=== PATIENT | male | born 1955 | race Caucasian/White ===

== ENCOUNTER → 2020-08-04 09:21 | Outpatient (BNVA) | payer MEDICARE, OTHER, SELFPAY | PROVIDERS: Family Provider Family Medicine; Visit Provider Registered Nurse | DX: I10 Essential (primary) hypertension (principal) | CPT/HCPCS: 80053; 80061; 85025 ==

== ENCOUNTER 2021-05-16 03:57 | Inpatient (IN) | payer MEDICARE, OTHER, SELFPAY ==
[2021-05-16] VITALS (11 sets, daily range): BP systolic 116–170; BP diastolic 70–92; PULSE 47–62; RESP 13–22; TEMP 36.4–36.9; O2SAT 95–98; BMI 29.5
--- NOTE | 2021-05-16 04:38 | ECG_ITS ---
[facility] Test Date: 2021-05-16 Pat Name: Saurabh Naylor Department: Room: 111 Gender: Male Mill[place] Helper: Ann Coral : 1955 Requested By: Raquel Lee Order Number: [id number] Romana MD: SHANNAN TAYLOR Interpretive Statements NAME OF STUDY: LEXISCAN SESTAMIBI STRESS TEST INDICATION: Chest Pain, NOTE: Please note that this is the electrocardiogram portion of the Lexiscan/Sestamibi stress test. The perfusion scan will be documented separately. DATA: Baseline heart rate was 48 beats per minute. Baseline blood pressure was 133/77 millimeters of mercury. Target heart rate was 154. Maximum heart rate achieved was 81. which was 52% of the predicted target heart rate. Maximum blood pressure was 156/92 millimeters of mercury. The reason for ending the test was completion of the protocol. The patient did not experience any symptoms. ELECTROCARDIOGRAM: BASELINE: Sinus bradycardia. Normal axis. Old anterior wall myocardial infarction inferolateral T wave abnormality could be nonspecific cannot rule out ischemia EXERCISE: After Lexiscan injection, no ST-T changes suggestive of ischemic noted. No arrhythmia noted. CONCLUSION: Please note due to baseline abnormality of the EKG specificity and sensitivity of the EKG portion of LexiScan MIBI stress test will be low 1. EKG not suggestive of ischemia 2. Lexiscan injection unremarkable. 3. Perfusion scan will be documented separately. Electronically Signed On 05-19-2021 14:35:18 CDT by SHANNAN TAYLOR [id number]
--- NOTE | 2021-05-16 04:38 | USCV_ITS ---
Saurabh Naylor Age: 65 Gender: M : 1955 Exam Date: 05/16/2021 06:15 Ordering Phys: Raquel Lee MD Technologist: Exam Location: [facility] [place] Indication: CP SOB BP: 170 / 89 HR: 46 Rhythm: Sinus Technical Quality: Adequate MEASUREMENTS (Male / Female) Normal Values 2D ECHO LV Diastolic Diameter PLAX 4.8 cm 4.2 - 5.9 / 3.9 - 5.3 cm LV Systolic Diameter PLAX 2.9 cm IVS Diastolic Thickness 1.1 cm 0.6 - 1.0 / 0.6 - 0.9 cm IVS Systolic Thickness 1.8 cm LVPW Diastolic Thickness 1.1 cm 0.6 - 1.0 / 0.6 - 0.9 cm LVPW Systolic Thickness 1.8 cm LVOT Diameter 2.1 cm LV Ejection Fraction 2D Teich 69.2 % LV Ejection Fraction MOD 2C 59.7 % LV Ejection Fraction 2C AL 58.0 % LA Diameter 4.0 cm LA Width 4.4 cm LA Height 5.0 cm RA Width 3.9 cm RA Height 4.8 cm M-MODE Aortic Annulus Diameter 2.8 cm LA Ao Ratio MM 1.6 DOPPLER AV Peak Velocity 215.3 cm/s LVOT Peak Velocity 94.0 cm/s AV Area Cont Eq vti 1.4 cm squared AV Area Cont Eq pk 1.5 cm squared MV Area PHT 2.4 cm squared Mitral E to A Ratio 0.9 MV E' Velocity 54.5 cm/s Mitral E to MV E' Ratio 18.4 Mitral E to LV E' Lateral Ratio 16.6 Mitral E to LV E' Septal Ratio 20.6 TR Peak Velocity 250.3 cm/s TR Peak Gradient 25.1 mmHg TV Peak E Velocity 109.0 cm/s Right Atrial Pressure 3.0 mmHg Pulmonary Artery Systolic Pressu 28.1 mmHg FINDINGS Left Ventricle Normal left ventricular size and systolic function, EF 62 %. Mild left ventricular hypertrophy. No regional wall motion abnormalities. Grade I/IV diastolic dysfunction (abnormal relaxation filling pattern), normal to mildly elevated filling pressures. Right Ventricle The right ventricle is normal in size and function. Right Atrium The right atrium is normal in size. Left Atrium Mildly increased left atrial size. Mitral Valve Thickened mitral valve. Moderate mitral annular calcification. Aortic Valve Thickened aortic valve. Trace yo mild aortic valve regurgitation. Tricuspid Valve No gross abnormalities noted Pulmonic Valve Pulmonic valve not well visualized. Pericardium Normal pericardium without effusion. Aorta Normal aortic annulus size. CONCLUSIONS Normal left ventricular size and systolic function, EF 62 %. Mild left ventricular hypertrophy. No regional wall motion abnormalities. Grade I/IV diastolic dysfunction (abnormal relaxation filling pattern), normal to mildly elevated filling pressures. Thickened mitral valve. Moderate mitral annular calcification. Thickened aortic valve. Trace yo mild aortic valve regurgitation. Mildly increased left atrial size. There is no pericardial effusion. There are no intracardiac masses. No previous study is available for comparison. Dr Wallace Drew MD FAC (Electronically Signed) Final Date: 16 May 2021 16:42 S
--- NOTE | 2021-05-16 04:39 | NMCV_ITS ---
NM yamilet perf SPECT r/s* [id number] Saurabh Naylor Age: 65 Gender: M : 1955 Exam Date: 05/16/2021 06:57 Ordering Phys: Raquel Lee MD Technologist: DAVID Ortiz Exam Location: [facility] Indications: CHEST PAIN STRESS TEST Please see separate stress test report in [facility] for full findings IMAGE PROTOCOL Rest/Stress 1 Lexiscan Day Radiopharmaceutical Dose (mCi) Administration Site Administered by Rest: Tc-99m 10.8 IV DAVID Dill Sestamibi Stress:Tc-99m 32.6 IV DAVID Dill Sestamibi Rest: 16-May-2021 60 Discovery 630 Stress: 16-May-2021 30 Discovery 630 0.4mg Lexiscan. Images obtained in supine and prone position. SPECT RESULTS Technical Quality: Excellent Raw Data Analysis: Normal Image Corrections: Patient motion artifact - motion correction applied to rest and stress images. Summed Stress Score: 14 Summed Rest Score: 2 Summed Difference Score: 12 PERFUSION FINDINGS Medium-sized area of decreased tracer uptake noted in basal inferior, inferoseptal and mid to distal inferior wall on the rest images which showed large area of severe reversibility in the mid to distal inferior inferoseptal and medium-sized area of reversibility suggestive of ischemia in the mid to distal anteroseptal wall suggestive of possible lesion in dominant RCA and LAD . FUNCTIONAL RESULTS (calculated via Gated SPECT) Stress Image LV EF (%): 47 Stress EDV (mL):159 TID: 1.08 Stress ESV (mL):84 Rest Image LV EF (%): 47 FUNCTIONAL FINDINGS: Inferior wall severe hypokinesis IMPRESSIONS Medium-sized area of decreased tracer uptake noted in basal inferior, inferoseptal and mid to distal inferior wall on the rest images which showed large area of severe reversibility in the mid to distal inferior inferoseptal wall and medium-sized area of reversibility suggestive of ischemia in the mid to distal anteroseptal wall suggestive of possible lesion in dominant RCA and LAD. EKG segment will be documented separately. Zackery Davidson MD (Electronically Signed) Final Date: 16 May 2021 16:16 S
[2021-05-16] MEDS: dextrose 5%-sod chloride 0.45% 1,000 ML 75 ML IV (04:59)
--- NOTE | 2021-05-16 05:19 | PM.HP ---
Providers/Chief Complaint Admitting Physician: Raquel Lee MD Primary Care Provider: Ronni Burk Chief Complaint: chest pain History of Present Illness Saurabh Naylor is a 65 year old male who presented to [facility] with complaint of chest pain. He has had intermittent episodes over the last 3 to 4 weeks. He walks daily and has had onset of the discomfort during his walks. Has not really noted that he gets better with rest. Its been escalating in severity over the last few weeks. On the day he presented to [facility], he had 3 or 4 episodes of discomfort across his entire chest that he described as a pressure sensation. No particular increase in shortness of breath, nausea, vomiting, diaphoresis or dizziness. With the recurrent episodes he presented to the ER there. By the time he came to the emergency room pain had resolved. He received aspirin. Initial troponin was 47 with a 2-hour delta of 14 and request was made for transfer here. Twelve-lead EKG showed sinus rhythm with some anterior lateral T wave changes. BNP was elevated. Patient himself and has no prior history of heart problems beyond high blood pressure. Sounds like he has not tolerated many medications and does not take anything for blood pressure regularly. At the current time patient is chest pain-free. He has not had any cardiac evaluation. His father did have heart problems necessitating cardiac intervention of some kind in his 50s. Review of Systems Const: Denies: fever(s), chills or change in weight Eyes: Denies: change in vision ENMT: Denies: throat pain or nasal congestion Card: Reports: chest pain; Denies: palpitations, edema or orthopnea Resp: Denies: dyspnea, productive cough or non-productive cough GI: Denies: abdominal pain, nausea, vomiting, diarrhea, constipation, hematochezia or melena : Denies: hematuria Musc: Denies: extremity pain Skin/Breast: Denies: rash or sores Neuro: Denies: headache(s), numbness in extremities, weakness in extremities or difficulty walking Psych: Denies: anxiety or depression Richard/Lymph: Denies: easy bruising or easy bleeding Medications/Allergies Home Medications Medication Instructions Recorded Confirmed Last Taken Type allopurinol 300 mg tablet 150 mg PO DAILY #90 tab 07/19/20 05/16/21 05/15/21 Rx celecoxib 100 mg capsule 100 mg PO BID #180 cap 07/19/20 05/16/21 05/15/21 Rx fluticasone propionate 50 See Rx Instructions .ROUTE 01/30/21 05/16/21 05/15/21 Rx mcg/actuation nasal .COMPLEX #16 g spray,suspension cyclosporine [Restasis] 1 drp OPHTHALMIC (EYE) BID 05/16/21 05/16/21 05/15/21 History ketoconazole 1 applic TOPICAL BID PRN 05/16/21 05/16/21 Unknown History omega 3-vitamin E-fish oil 1 cap PO BID 05/16/21 05/16/21 05/15/21 History triamcinolone acetonide 1 applic TOPICAL BID PRN 05/16/21 05/16/21 Unknown History Allergies Allergy/AdvReac Type Severity Reaction Status Date / Time No Known Allergies Allergy Verified 08/04/20 08:58 PFSH Acute PFSH: Medical History (Updated 05/16/21 @ 05:29 by Raquel Lee MD) Chronic sinus bradycardia Essential hypertension Gout Osteoarthritis Surgical History (Updated 05/16/21 @ 05:29 by Raquel Lee MD) History of colonoscopy (~2016) History of esophagogastroduodenoscopy (EGD) (~2012) History of surgery Varicocelectomy Family History (Updated 05/16/21 @ 06:22 by Raquel Lee MD) Father CAD (coronary artery disease) Onset in his 50s, had some type of cardiac intervention Social History (Updated 05/16/21 @ 06:23 by Raquel Lee MD) Smoking and tobacco status: never smoked Alcohol intake: never Substance/Drug Use: never Household members: spouse Vitals/I&O/Wt Last Vital Signs Pulse 47 L 05/16/21 05:07 Resp 22 H 05/16/21 04:34 BP 170/89 05/16/21 04:34 Pulse Ox 95 05/16/21 04:34 vital signs at outside facility showed heart rate in the 40s and blood pressure generally 150s to 160s over 80s Weight last 48 hrs Weight 80.649 kg Physical Exam Narrative: EXAM NARRATIVE: Constitutional: Awake and alert, able to provide history HEENT: Normocephalic, atraumatic, pupils reactive, extraocular movements intact, nasopharynx is clear, oropharynx is clear Neck: Supple without JVD noted Respiratory: Clear to auscultation bilaterally had any rales or wheezes Cardiovascular: Bradycardic but regular rhythm Abdomen: Soft, nontender, nondistended, positive bowel sounds : Deferred Extremities: No pitting edema or acute synovitis Skin: No rashes or large bruises Neuro: Face symmetric, speech clear, moves all extremities, handgrip equal Psych: Normal affect Data Other data: EKG: From [facility] per my interpretation with sinus rhythm 60 bpm with anterior lateral T wave inversion, no ST segment elevation Prior or outside records reviewed: Records from [facility] reviewed as were [facility] records here. Laboratory studies there showed the following: White count 6, H&H 14/44, platelets 186, 54% neutrophils, 32% lymphocytes, INR 0.9, PTT 29.1, D-dimer slightly elevated at 0.69 with upper limits of normal at 0.050 Sodium 144, potassium 3.6, chloride 109, CO2 27, calcium 9.0, BUN/creatinine 24/1.1, glucose 117, total protein 6.4, albumin 3.9, total bilirubin 0.3, alkaline phosphatase 83, AST 23, ALT 16, lipase 30, proBNP 1076 which is elevated with normal range 0-1 25, TSH 1.20, magnesium 2.2 Fifth generation troponin at baseline 43, at 2 hours 57 with 2-hour delta of 14, at 6 hours 54 with a 6-hour delta of 11 Urine drug screen was negative, urinalysis unremarkable Covid rapid antigen was negative, benzo screen negative for AMB Chest x-ray revealed cardiomegaly without any other acute abnormality identified. Description showed mild left basilar atelectasis. 2.2 cm left lower lobe nodule that had also been seen on prior CT in 2016. Remainder of the lungs are clear. Pleural spaces are unremarkable with no pleural effusion or pneumothorax. Bones were unremarkable and heart/mediastinum showed the moderate cardiomegaly. A&P Assessment and plan (1) Chest pain: Status: Acute (2) Elevated brain natriuretic peptide (BNP) level: Status: Acute (3) Essential hypertension: Status: Chronic Additional A&P Information Observation admission Repeat troponin Echocardiogram Nuclear stress testing Consider cardiology consultation pending results of above Continue Nitropaste currently for blood pressure control, consider alternative agents for blood pressure control after stress testing Check lipid panel Check hemoglobin A1c PPI Hold home Celebrex as GI source of chest discomfort is also within the differential Continue home allopurinol Supportive care otherwise Plans were discussed with patient and he was given an opportunity to ask questions Anticipate discharge home when medically stable Lovenox for DVT prophylaxis Full code Attestations Medical Necessity Statement*: Currently anticipate a stay less than two midnights in a gentleman presenting with chest pain that has resolved, abnormal troponin and EKG necessitating further cardiac evaluation as described. Coding Level of Care Code Acute Boom Supervisor for Isidro Saucedo Diagnoses Chest pain R07.9 Elevated brain natriuretic peptide (BNP) level R79.89 Essential hypertension I10
--- NOTE | 2021-05-16 06:36 | ECG_ITS ---
[facility] Test Date: 2021-05-16 Pat Name: Saurabh Naylor Department: Room: 111 Gender: Male Guest Room Attendant: : 1955 Requested By: Raquel Lee Order Number: [id number] Romana MD: SHANNAN TAYLOR Measurements Intervals [place] Rate: 46 P: 69 ID: [id number] QRS: -10 QRSD: 104 T: -70 QT: 535 QTc: 472 Interpretive Statements SINUS BRADYCARDIA MODERATE T-WAVE ABNORMALITY, CONSIDER ANTEROLATERAL ISCHEMIA [-0.1+ mV T WAVE IN V3-V6] MODERATE T-WAVE ABNORMALITY, CONSIDER INFERIOR ISCHEMIA [-0.1+ mV T WAVE IN II/aVF] No previous ECG available for comparison Electronically Signed On 05-16-2021 20:13:52 CDT by SHANNAN TAYLOR [id number]
[2021-05-16] MEDS: regadenoson 0.4 Mg/5 ml Syringe IVP (07:43)
--- NOTE | 2021-05-16 08:40 | PC.NURSE ---
spoke with Dr tovar upon patient return to unit in regards to medications not given on time due to pharmacy delay in verification and patient off unit for testing instructions received to re-time lovenox stop nitro paste
--- NOTE | 2021-05-16 09:12 | PC.NURSE ---
On unit Pt returned to unit after stress test at 0835
--- NOTE | 2021-05-16 09:36 | PC.CHAP ---
Pastoral Care Encounter/Spiritual Assessment Type of Contact [] Declined subsorter visit [] Patient/Family/Request visit [] Outpatient visit [] Follow-up visit [] Physician referral [] Code/Alert [x] Routine visit [] Staff referral [] Actively dying [] Patient sleeping [] Family support [] [] Out of room [] Palliative care [] [] Receiving care in room [] Pre-surgical visit [] Trauma [] Long length of stay [] ICU visit [] Other: Relational/Emotional Strength [] Patient feels connected with others/family/visitors/staff [] Distress [] Loneliness/isolation [] Abandonment Spirituality of Patient [] Person of Jaylin [] Attends Alevism of their Jaylin [] Believes in Prayer [] Reads Bible or Confucianism materials [] There are Spiritual issues to be addressed Social Sciences Lecturer Interventions [x] Prayer [x] Active listening [x] Non-anxious presence [x] Spiritual/emotional support [] Crisis/trauma care [] Spiritual counseling [] Bereavement support [] Provided bereavement packet [] Provided Bible/devotional materials [] Provided toy/stuffed animal, coloring book to patient or family member [] Provided Communion [] Anointing/[place] [] Salvation [x] Completed spiritual assessment [] Other: Impact on Illness or Injury [] Angry [] Fearful [] Anxious [] Often cries [] Exhaustion [] Unable to work [] Unable to attend denominational [] Unable to walk/stand [] Unable to read [] Unable to drive [] Unable to eat/drink [] Unable to sleep [] Unable to be with family [] Patient intubated [] Other: Summary patient feeling much better... stronger... Time spent with patient 10 min
[2021-05-16] MEDS: enoxaparin 40 mg/0.4 mL Syringe SUBCUT (09:55)
[2021-05-16] MEDS: pantoprazole DR 40 mg Tablet PO (09:55)
[2021-05-16 10:19] LABS: INR 1.03 (0.8-1.2)
[2021-05-16 10:20] LABS: Partial Thromboplastin Time 28.9 SECONDS (23.9-36.7)
[2021-05-16 10:30] LABS: Estmated Average Glucose 123; Hemoglobin A1C 5.9 % (4.0-6.0)
[2021-05-16 10:56] LABS: Troponin(5th) Baseline 49 ng/L (0-15)
[2021-05-16 11:04] LABS: Chol HDL Ratio 3.17 mg/dL (1.0-5.00); Cholesterol 165 mg/dL (0-200); HDL Cholesterol 52 mg/dL (60-100); LDL Cholesterol Calculated 98 mg/dL (50-129); LDL HDL Ratio 1.88 RATIO (0.00-3.22); NT Pro B Type Natriuretic Pept 1097 pg/mL (0-125); Triglycerides 77 mg/dL (0-150)
[2021-05-16 12:28] LABS: Troponin 5 2HR 44.02 ng/L (0-15)
[2021-05-16 12:29] LABS: Troponin 5 2HR Delta -4.98 ABS# (0-10)
--- NOTE | 2021-05-16 13:18 | PC.NURSE ---
during rounding this nurse inquired about fluids currently running verbal instructions to stop fluids now
--- NOTE | 2021-05-16 17:09 | PM.CONSULT ---
Providers/Reason For Consult Consulting Physician/Specialty*: ZHANG Drew MD/ Cardiology Reason for Consult*: Patient with chest pain, and abnormal myocardial perfusion imaging Attending Physician: Rickey Murcia Primary Care Provider: Ronni Burk History of Present Illness History of Present Illness Saurabh Naylor is a 65 year old male , is admitted to the hospital with complaints of prolonged episode of chest pain. Myocardial infarction was ruled out with serial enzymes and EKGs. He underwent a myocardial perfusion imaging today. He was found to have areas of reversible and reversible perfusion defect, suggesting underlying coronary ischemia. Cardiology consult is requested for further cardiac evaluation recommendations. This patient has no previous history for any coronary artery disease, myocardial infarction or congestive heart failure. He has a history of gouty arthritis and osteoarthritis. Approximately 2 weeks ago, his right having chest pain with exertion. He may have had at least half a dozen of episodes of chest pain so far. Each of these episodes were precipitated with activities. He described the pain as a pressure-like/heavy pain in the mid substernal area, radiating across the chest, to the shoulders and to the left arm. Occasionally it radiates to the back. He had associated shortness of breath, nausea and sweating. Usually the pain may last anywhere from 10 to 15 minutes then goes away by itself with rest. On the day of admission, he had a prolonged episode of chest pain which lasted for couple of hours. Intensity of the pain was moderate. Because of this prolonged episode of chest pain, he decided to come to the hospital. He did not have any fever or chills. No cough. No unusual shortness of breath. No abdominal pain or dysuria. No headache or blurring of vision. No other specific complaints. Patient initially presented to the [facility] in [place] with these complaints. He had an elevated troponin T with a 2-hour delta of 14. His proBNP also was elevated to 1076. He was subsequently transferred to our facility for further evaluation management. His chest x-ray showed some cardiomegaly and features of atelectasis. He has no previous history for any hypertension, diabetes or dyslipidemia. He has been very active and consistent with his exercise. He denies any smoking abuse or alcohol abuse. His father has a history of coronary disease and had a PCI in his 50s. No other relevant family history. Review of Systems Narrative: CONSTITUTIONAL: No fever or chills. EYES: No blurring of vision or other visual disturbances lately. ENT: No hoarseness of voice, auditory disturbances or sore throat. CARDIOVASCULAR: As mentioned above. RESPIRATORY: No significant cough. GASTROINTESTINAL: No hematemesis or melena. GENITOURINARY: No dysuria or hematuria. INTEGUMENTARY: No skin rashes or history of skin cancer. NEURO: No transient ischemic attacks or amaurosis. PSYCHIATRIC: No history of psychosis or major depression. HEMATOLOGIC: No bleeding disorders or significant anemia. ENDOCRINE: No history of polyuria or polydipsia. MUSCULOSKELETAL: No recent joint pain or swelling. ALLERGY/IMMUNOLOGY: As mentioned above. Meds/Allergies Home Medications and Allergies Home Medications Medication Instructions Recorded Confirmed Last Taken Type allopurinol 300 mg tablet 150 mg PO DAILY #90 tab 07/19/20 05/16/21 05/15/21 Rx celecoxib 100 mg capsule 100 mg PO BID #180 cap 07/19/20 05/16/21 05/15/21 Rx fluticasone propionate 50 See Rx Instructions .ROUTE 01/30/21 05/16/21 05/15/21 Rx mcg/actuation nasal .COMPLEX #16 g spray,suspension cyclosporine [Restasis] 1 drp OPHTHALMIC (EYE) BID 05/16/21 05/16/21 05/15/21 History ketoconazole 1 applic TOPICAL BID PRN 05/16/21 05/16/21 Unknown History omega 3-vitamin E-fish oil 1 cap PO BID 05/16/21 05/16/21 05/15/21 History triamcinolone acetonide 1 applic TOPICAL BID PRN 05/16/21 05/16/21 Unknown History Allergies Allergy/AdvReac Type Severity Reaction Status Date / Time No Known Allergies Allergy Verified 08/04/20 08:58 Current Medications Current Medications Generic Name Dose Route Start Last Admin Trade Name Freq PRN Reason Stop Dose Admin Allopurinol 150 mg 05/16/21 09:00 05/16/21 09:58 Allopurinol 300 Mg Tablet PO Not Given DAILY GILMA Enoxaparin Sodium 40 mg 05/16/21 10:00 05/16/21 09:55 Enoxaparin 40 Mg/0.4 Ml Syringe SUBCUT 40 mg Q24H GILMA Administration Non-Formulary Medication 1 drop 05/16/21 09:00 05/16/21 09:28 Cyclosporine [Restasis] EYEAFF Not Given BID GILMA Pantoprazole Sodium 40 mg 05/16/21 09:00 05/16/21 09:[address] 40 Mg Tablet PO 40 mg DAILY GILMA Administration PFSH Acute PFSH: Medical History Chronic sinus bradycardia Essential hypertension Gout Osteoarthritis Surgical History History of colonoscopy (~2016) History of esophagogastroduodenoscopy (EGD) (~2012) History of surgery Varicocelectomy Family History Father CAD (coronary artery disease) Onset in his 50s, had some type of cardiac intervention Social History Smoking and tobacco status: never smoked Alcohol intake: never Substance/Drug Use: never Household members: spouse Vitals/I&O/Wt Last Vital Signs Temp 98.4 F 05/16/21 15:53 Pulse 51 L 05/16/21 15:53 Resp 21 H 05/16/21 15:53 BP 128/70 05/16/21 15:53 Pulse Ox 97 05/16/21 15:53 05/16/21 05/16/21 05/16/21 06:59 14:59 22:59 Intake Total 666.25 / 666.25 Balance 666.25 / 666.25 Weight last 48 hrs Weight 177 lb 12.8 oz Physical Exam Narrative: EXAM NARRATIVE: GENERAL: The patient is alert and oriented times three. Not in any acute distress. HEENT: No significant pallor, icterus or lymphadenopathy. The pupils are symmetrical in size. Oral cavity: There are no mucous membrane lesions. Funduscopic examination: The fundus is not visualized. NECK: Trachea appears to be central. No masses noted. No JVD or thyromegaly appreciated. No carotid bruit. RESPIRATORY: Chest is symmetrical. No intercostals muscle retraction or any accessory muscle activation. There is no chest wall tenderness. Breath sounds are heard bilaterally. No rales or rhonchi heard. No evidence of any consolidation. BREASTS: Deferred. HEART: The PMI could not be palpated. No palpable precordial events. S1 and S2 are normal. No S3 or S4 heard. No pericardial rub or any click heard. ABDOMEN: No vessel pulsations or distention. No tenderness. No organomegaly appreciated. No abdominal bruit. Bowel sounds are normally heard. : Deferred. RECTAL: Deferred. LYMPHATIC: No lymphadenopathy noted in the neck or groin. EXTREMITIES: No edema or cyanosis. No clubbing. The pulses are symmetrical bilaterally. The radial, femoral, dorsalis pedis and the posterior tibial pulses are palpated and found to be in good volume and amplitude. MUSCULOSKELETAL: Acute joint deformities or swelling. SKIN: There are no significant scars or skin rash noted. NEUROPSYCHIATRIC: The patient is alert and oriented x3. Appears to be in a good mood. The higher functions are grossly within normal limits. No tremors or rigidity noted. Data Labs: Other Labs: Laboratory Last Values PT 13.80 SECONDS (12 .1-14.9) 05/16/21 09:49 INR 1.03 (0.8-1.2) 05/16/21 09:49 APTT 28.9 SECONDS (23. 9-36.7) 05/16/21 09:49 Estimat Average Gl ucose 123 05/16/21 09:49 Hemoglobin A1c 5.9 % (4.0-6.0) 05/16/21 09:49 Magnesium 2.0 mg/dL (1.7-2. 3) 05/16/21 09:49 Troponin T Baselin e 49 ng/L (0-15) H 05/16/21 09:49 Troponin T 120 Min eliazar 44.02 ng/L (0-15) H 05/16/21 11:50 Delta Troponin T -4.98 ABS# (0-10) L 05/16/21 11:50 NT-Pro-B Natriuret Pep 1097 pg/mL (0-125 ) H 05/16/21 09:49 Triglycerides 77 mg/dL (0-150) 05/16/21 09:49 Cholesterol 165 mg/dL (0-200) 05/16/21 09:49 LDL Cholesterol, C alc 98 mg/dL (50-129) 05/16/21 09:49 HDL Cholesterol 52 mg/dL (60-100) L 05/16/21 09:49 LDL/HDL Ratio 1.88 RATIO (0.00- 3.22) 05/16/21 09:49 Cholesterol/HDL Ra dinora 3.17 mg/dL (1.0-5 .00) 05/16/21 09:49 Imaging^: Myocardial perfusion imaging: My impression: Medium-sized area of decreased tracer uptake noted in basal inferior, inferoseptal and mid to distal inferior wall on the rest images which showed large area of severe reversibility in the mid to distal inferior inferoseptal wall and medium-sized area of reversibility suggestive of ischemia in the mid to distal anteroseptal wall suggestive of possible lesion in dominant RCA and LAD. EKG segment will be documented separately. Echo: My impression: Echocardiogram from 05 16 2021 revealed normal left ventricular size and systolic function, EF 62 %. Mild left ventricular hypertrophy. No regional wall motion abnormalities. Grade I/IV diastolic dysfunction (abnormal relaxation filling pattern), normal to mildly elevated filling pressures. Thickened mitral valve. Moderate mitral annular calcification. Thickened aortic valve. Trace yo mild aortic valve regurgitation. Mildly increased left atrial size. There is no pericardial effusion. There are no intracardiac masses. No previous study is available for comparison. EKG^: EKG 1: My Interpretation: The EKG revealed extensive anterolateral and inferior wall T inversions suggestive of anterolateral and inferior wall ischemia. Poor R wave progression. 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 He is history is suggesting an unstable anginal pattern. EKG suggestive of anterolateral and inferior wall ischemia. The abnormal myocardial perfusion imaging is suggestive of ischemia in distribution of the right coronary artery/left anterior descending artery. For further evaluation of the patient's coronary status, he requires a cardiac catheterization. This was discussed with the patient in detail with the risk and benefits. The risk of bleeding, hematoma, vascular injury, myocardial infarction, CVA, renal failure and other concomitant complications were explained in detail. Patient understood this well and consented to proceed. Status: Acute (2) Non-ST elevation myocardial infarction (NSTEMI): Patient may be treated with a subcu Lovenox, beta-luis fernando, aspirin, statin drug, topical nitrates. I also may go ahead and give him 300 mg of Plavix p.o. followed by 75 mg p.o. daily. Based on his clinical progress, further recommendations will be made. Status: Acute (3) Dyslipidemia: Agree with the atorvastatin. May continue on this medication for the time being. Status: Acute (4) Abnormal nuclear stress test: As mentioned above. Implications of the myocardial perfusion imaging results were discussed with the patient which is understood well Status: Acute Additional A&P Information Other problems are History of osteoarthritis History of gouty arthritis Family history of premature atherosclerotic heart disease I may go ahead and schedule this patient patient for a cardiac catheterization tomorrow. Based on the angiogram findings, further recommendations will be made. 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
--- NOTE | 2021-05-16 18:33 | PM.PN ---
Subjective Subjective: Interval history: Denies chest pain. No trouble breathing. Vitals/I&O/Wt Last Vital Signs Temp 98.4 F 05/16/21 15:53 Pulse 51 L 05/16/21 15:53 Resp 21 H 05/16/21 15:53 BP 128/70 05/16/21 15:53 Pulse Ox 97 05/16/21 15:53 05/16/21 05/16/21 05/16/21 06:59 14:59 22:59 Intake Total 666.25 / 666.25 240 / 906.25 Balance 666.25 / 666.25 240 / 906.25 Weight last 48 hrs Weight 80.649 kg Physical Exam Narrative: EXAM NARRATIVE: at bedside. Const: COMMON NORMALS: no acute distress and patient oriented x3 HENMT: COMMON NORMALS: oropharynx normal Neck/C-Spine: COMMON NORMALS: no JVD Resp: COMMON NORMALS: normal respiratory effort and clear to auscultation bilaterally AUSCULTATION: clear to auscultation bilaterally Cardio: COMMON NORMALS: no JVD, regular rhythm, S1 normal heart sound present, S2 normal heart sound present and No murmurs present (Cardio) RHYTHM: regular rhythm HEART SOUNDS: S1 normal heart sound present and S2 normal heart sound present GI: COMMON NORMALS: Normal to inspection, nondistended, normoactive bowel sounds present, Soft to palpation and non-tender PALPATION: Yes Soft to palpation Extremity: COMMON NORMALS: no joint enlargement and no pedal edema Neuro: COMMON NORMALS: patient oriented x3 and moves all extremities Skin: COMMON NORMALS: no rashes or lesions noted GENERAL SKIN EXAM: no rashes or lesions noted A&P Assessment and plan (1) Chest pain: Troponin with flat trend here, 49-44. NT proBNP elevated 1097. Abnormal stress test. Appreciate cardiology consultation. Continue cardiac medications. Given abnormal stress test, retractors of coronary disease, abnormal troponin, chest pain, possible NSTEMI, he may benefit from additional assessment by coronary angiography. Status: Acute (2) Elevated brain natriuretic peptide (BNP) level: Status: Acute (3) Essential hypertension: Status: Chronic Attestations Medical Necessity Statement*: Continue admission for assessment management of CAD, NSTEMI. Coding Level of Care Code Acute Returned Case Inspector for [facility] Fwd Exam Comprehensive Diagnoses Chest pain R07.9 Elevated brain natriuretic peptide (BNP) level R79.89 Essential hypertension I10
--- NOTE | 2021-05-16 19:58 | PC.NURSE ---
Instructions received to change lovenox from 40 Q24H to lovenonx 80mg subq BID
[2021-05-16] MEDS: atorvastatin 40 mg Tablet PO (20:22)
[2021-05-16] MEDS: clopidogrel 300 mg Tablet PO ×2 (20:22→20:23)
[2021-05-16] MEDS: enoxaparin 80 mg/0.8 mL Syringe SUBCUT (20:22)
[2021-05-16] MEDS: aspirin 325 mg Tablet PO (20:22)
[2021-05-16] MEDS: metoprolol tartrate 25 mg Tablet 12.5 MG PO (20:28)
[2021-05-17] VITALS (69 sets, daily range): BP systolic 116–165; BP diastolic 64–87; PULSE 46–66; RESP 3–23; TEMP 36.6–36.8; O2SAT 89–98
[2021-05-17 04:07] LABS: Basophils # 0.1 10^3/uL (0.0-0.1); Basophils % 1.1 %; Eosinophils # 0.1 10^3/uL (0.0-0.8); Eosinophils % 1.6 %; Hemoglobin 15.3 g/dL (11.7-16.6); Lymphocytes # 2.2 10^3/uL (0.8-4.8); Lymphocytes % 29.5 %; Mean Corpuscular HGB Conc 32.6 g/dL (30.0-36.0); Mean Corpuscular Hemoglobin 28.7 pg (28.0-34.0); Mean Platelet Volume 9.6 fL (7.4-10.4); Monocytes # 0.9 10^3/uL (0.2-0.9); Monocytes % 11.8 %; Neutrophils # 4.15 10^3/uL (1.8-7.7); Neutrophils % 55.5 %; Nucleated Red Blood Cells % 0 %; Platelet Count 188 10^3/cmm (130-400); Red Blood Count 5.34 10^6/uL (4.1-5.3); Red Cell Distribution Width 13.9 % (12.1-15.1); White Blood Count 7.5 10^3/uL (4.0-10.0)
[2021-05-17 04:32] LABS: Blood Urea Nitrogen 15 mg/dL (8-23); Calcium 8.6 mg/dL (8.5-10.5); Carbon Dioxide 27 mmol/L (22-29); Chloride 108 mmol/L (98-107); Glomerular Filtration Rate 74.8 mL/min (90-130); Glucose 94 mg/dL (65-115); Osmolality Calculated 295 mOsm/kg (285-295); Sodium 142 mmol/L (136-145)
[2021-05-17] MEDS: diphenhydrAMINE 50 mg Capsule PO (07:33)
[2021-05-17] MEDS: sodium chloride 0.9% 1,000 ML 50 ML IV (07:34)
--- NOTE | 2021-05-17 08:05 | W.PM.OPSUD ---
Surgery/Procedure H&P Update DATE OF PROCEDURE: May 17, 2021 DATE H&P PERFORMED: 05/16/21 H&P UPDATE INFORMATION: I have reviewed H&P completed within last 30 days, I have examined patient prior to procedure and No changes to prior documentation PREOP DIAGNOSIS: Non-ST elevation myocardial infarction/ASHD PRIMARY INDICATION FOR PROCEDURE: UAP/ NSTEMI/ abnormal stress test PATIENT REASSESSED PRIOR TO SEDATION, WITH NO CHANGE NOTED: Yes PHYSICAL EXAM: alert, oriented x 3, clear to auscultation bilaterally and regular rate & rhythm AIRWAY EVAL/ANESTHESIA PLAN: normal airway, see other exam findings, ASA III, Monitored Anesthesia, Local Anesthesia, Risks, benefits & alternatives of sedation and/or procedure discussed and Patient agrees to continue as planned
--- NOTE | 2021-05-17 09:08 | P.PN_ITS ---
Subjective Subjective: Interval history: Patient denies any chest pain or chest tightness. No unusual shortness of breath. He has not had any significant arrhythmias on the monitor. Vital signs remained stable. No new symptoms. Medications: Reviewed: Yes Medication Review Details: Current Medications Acetaminophen (Acetaminophen 325 Mg Tablet) 650 mg PO Q6H PRN PRN Reason: Mild/Mod Pain Or Temp >/= 101 Allopurinol (Allopurinol 300 Mg Tablet) 150 mg PO DAILY [facility] Last Admin: 05/16/21 09:58 Dose: Not Given Documented by: Aspirin (Aspirin 325 Mg Tablet) 325 mg PO DAILY [facility] Last Admin: 05/16/21 20:22 Dose: 325 mg Documented by: Atorvastatin Calcium (Atorvastatin 40 Mg Tablet) 40 mg PO BEDTIME [facility] Last Admin: 05/16/21 20:22 Dose: 40 mg Documented by: Bisacodyl (Bisacodyl 5 Mg Tablet) 10 mg PO DAILY PRN; Protocol PRN Reason: Constipation (see protocol) Calcium Carbonate (Calcium Carbonate 500 Mg Chew Tablet) 1,000 mg PO Q4H PRN PRN Reason: DYSPEPSI Clopidogrel Bisulfate (Clopidogrel 75 Mg Tablet) 75 mg PO DAILY [facility] Enoxaparin Sodium (Enoxaparin 80 Mg/0.8 Ml Syringe) 80 mg SUBCUT Q12H [facility] Last Admin: 05/17/21 07:59 Dose: Not Given Documented by: Sodium Chloride (Sodium Chloride 0.9%) 1,000 mls @ 50 mls/hr IV .Q20H [facility] Last Admin: 05/17/21 07:34 Dose: 50 mls/hr Documented by: Metoprolol Tartrate (Metoprolol Tartrate 25 Mg Tablet) 12.5 mg PO BID@0900,2100 [facility] Last Admin: 05/16/21 20:28 Dose: 12.5 mg Documented by: Nitroglycerin (Nitroglycerin 0.4 Mg Sublingual Tablet) 0.4 mg SUBLINGUAL Q5M PRN PRN Reason: CHEST PAIN Non-Formulary Medication (Cyclosporine [Restasis]) 1 drop EYEAFF BID [facility] Last Admin: 05/16/21 18:44 Dose: Not Given Documented by: Ondansetron HCl (Ondansetron 2 Mg/Ml Sdv 2 Ml) 4 mg IVP Q8H PRN PRN Reason: vomiting, or N/V if npo Ondansetron HCl (Ondansetron 2 Mg/Ml Sdv 2 Ml) 4 mg IVP Q2M PRN PRN Reason: NAUSEA Pantoprazole Sodium (Pantoprazole Dr 40 Mg Tablet) 40 mg PO DAILY GILMA Last Admin: 05/16/21 09:55 Dose: 40 mg Documented by: Vitals/I&O/Wt Last Vital Signs Temp 97.8 F 05/17/21 08:00 Pulse 55 L 05/17/21 08:00 Resp 19 H 05/17/21 08:00 BP 165/87 05/17/21 08:00 Pulse Ox 97 05/17/21 08:00 05/16/21 05/17/21 05/17/21 22:59 06:59 14:59 Intake Total 480 / 1146.25 Balance 480 / 1146.25 Weight last 48 hrs Weight 177 lb Weight 177 lb 12.8 oz Physical Exam Narrative: EXAM NARRATIVE: GENERAL: The patient is alert and oriented times three. Not in any acute distress. HEENT: No significant pallor, icterus or lymphadenopathy. The pupils are symmetrical in size. Oral cavity: There are no mucous membrane lesions. Funduscopic examination: The fundus is not visualized. NECK: Trachea appears to be central. No masses noted. No JVD or thyromegaly appreciated. No carotid bruit. RESPIRATORY: Chest is symmetrical. No intercostals muscle retraction or any accessory muscle activation. There is no chest wall tenderness. Breath sounds are heard bilaterally. No rales or rhonchi heard. No evidence of any consolidation. BREASTS: Deferred. HEART: The PMI could not be palpated. No palpable precordial events. S1 and S2 are normal. No S3 or S4 heard. No pericardial rub or any click heard. ABDOMEN: No vessel pulsations or distention. No tenderness. No organomegaly appreciated. No abdominal bruit. Bowel sounds are normally heard. : Deferred. RECTAL: Deferred. LYMPHATIC: No lymphadenopathy noted in the neck or groin. EXTREMITIES: No edema or cyanosis. No clubbing. The pulses are symmetrical bilaterally. The radial, femoral, dorsalis pedis and the posterior tibial pulses are palpated and found to be in good volume and amplitude. MUSCULOSKELETAL: Acute joint deformities or swelling. SKIN: There are no significant scars or skin rash noted. NEUROPSYCHIATRIC: The patient is alert and oriented x3. Appears to be in a good mood. The higher functions are grossly within normal limits. No tremors or rigidity noted. Data : 05/17/21 03:46 05/17/21 03:46 Other Labs: Laboratory Last Values WBC 7.5 10^3/uL (4.0-10.0) 05/17/21 03:46 RBC 5.34 10^6/uL (4.1-5.3) H 05/17/21 03:46 Hgb 15.3 g/dL (11.7-16.6) 05/17/21 03:46 Hct 47.0 % (42.0-52.0) 05/17/21 03:46 MCV 88.0 fL (80-94) 05/17/21 03:46 MCH 28.7 pg (28.0-34.0) 05/17/21 03:46 MCHC 32.6 g/dL (30.0-36.0) 05/17/21 03:46 RDW 13.9 % (12.1-15.1) 05/17/21 03:46 Plt Count 188 10^3/cmm (130-400) 05/17/21 03:46 MPV 9.6 fL (7.4-10.4) 05/17/21 03:46 Neut % (Auto) 55.5 % 05/17/21 03:46 Lymph % (Auto) 29.5 % 05/17/21 03:46 Brooks % (Auto) 11.8 % 05/17/21 03:46 Eos % (Auto) 1.6 % 05/17/21 03:46 Baso % (Auto) 1.1 % 05/17/21 03:46 Neut # (Auto) 4.15 10^3/uL (1.8-7.7) 05/17/21 03:46 Lymph # (Auto) 2.2 10^3/uL (0.8-4.8) 05/17/21 03:46 Brooks # (Auto) 0.9 10^3/uL (0.2-0.9) 05/17/21 03:46 Eos # (Auto) 0.1 10^3/uL (0.0-0.8) 05/17/21 03:46 Baso # (Auto) 0.1 10^3/uL (0.0-0.1) 05/17/21 03:46 Nucleated RBC % (auto) 0 % 05/17/21 03:46 Nucleated RBCs # 0.0 /100WBC 05/17/21 03:46 PT 13.80 SECONDS (12.1-14.9) 05/16/21 09:49 INR 1.03 (0.8-1.2) 05/16/21 09:49 APTT 28.9 SECONDS (23.9-36.7) 05/16/21 09:49 Sodium 142 mmol/L (136-145) 05/17/21 03:46 Potassium 4.0 mmol/L (3.5-5.1) 05/17/21 03:46 Chloride 108 mmol/L (98-107) H 05/17/21 03:46 Carbon Dioxide 27 mmol/L (22-29) 05/17/21 03:46 Anion Gap 11.0 (5-19) 05/17/21 03:46 BUN 15 mg/dL (8-23) 05/17/21 03:46 Creatinine 1.0 mg/dL (0.7-1.2) 05/17/21 03:46 GFR Calculation 74.8 mL/min (90-130) L 05/17/21 03:46 Glucose 94 mg/dL (65-115) 05/17/21 03:46 Estimat Average Glucose 123 05/16/21 09:49 Hemoglobin A1c 5.9 % (4.0-6.0) 05/16/21 09:49 Calculated Osmolality 295 mOsm/kg (285-295) 05/17/21 03:46 Calcium 8.6 mg/dL (8.5-10.5) 05/17/21 03:46 Magnesium 2.0 mg/dL (1.7-2.3) 05/16/21 09:49 Troponin T Baseline 49 ng/L (0-15) H 05/16/21 09:49 Troponin T 120 Minute 44.02 ng/L (0-15) H 05/16/21 11:50 Delta Troponin T -4.98 ABS# (0-10) L 05/16/21 11:50 NT-Pro-B Natriuret Pep 1097 pg/mL (0-125) H 05/16/21 09:49 Triglycerides 77 mg/dL (0-150) 05/16/21 09:49 Cholesterol 165 mg/dL (0-200) 05/16/21 09:49 LDL Cholesterol, Calc 98 mg/dL (50-129) 05/16/21 09:49 HDL Cholesterol 52 mg/dL (60-100) L 05/16/21 09:49 LDL/HDL Ratio 1.88 RATIO (0.00-3.22) 05/16/21 09:49 Cholesterol/HDL Ratio 3.17 mg/dL (1.0-5.00) 05/16/21 09:49 A&P Assessment and plan (1) Atherosclerotic heart disease of [place] coronary artery with unstable angina pectoris: Patient currently is asymptomatic. He is history is suggesting an unstable anginal pattern. EKG suggestive of anterolateral and inferior wall ischemia. The abnormal myocardial perfusion imaging is suggestive of ischemia in distribution of the right coronary artery/left anterior descending artery. For further evaluation of the patient's coronary status, he requires a cardiac catheterization. This was discussed with the patient in detail with the risk and benefits. The risk of bleeding, hematoma, vascular injury, myocardial infarction, CVA, renal failure and other concomitant complications were explained in detail. Patient understood this well and consented to proceed. Schedule further cardiac catheterization this afternoon. He is currently n.p.o. Based on the results of the coronary angiogram, further management decisions will be made. Status: Acute (2) Non-ST elevation myocardial infarction (NSTEMI): Patient may be continue on the current medications. He is tolerating the current medication so far well Status: Acute (3) Dyslipidemia: Agree with the atorvastatin. May continue on this medication for the time being. Status: Acute (4) Abnormal nuclear stress test: The implications of the myocardial perfusion imaging test results are discussed in detail with the patient. Based on the angiogram findings, further management decisions will be made. Status: Acute Additional A&P Information Other problems are History of osteoarthritis History of gouty arthritis Family history of premature atherosclerotic heart disease Patient is scheduled for the coronary angiogram this afternoon. Based on the results of the test and also patient's clinical progress, further management decisions will be made. Attestations Medical Necessity Statement*: Patient requires continued hospital stay for cl ose monitoring and further management Coding Level of Care Code Acute [employer] Cage Supervisor for [facility] Saucedo Diagnoses Atherosclerotic heart disease of [place] coronary artery with unstable angina pectoris I25.110 Non-ST elevation myocardial infarction (NSTEMI) I21.4 Dyslipidemia E78.5 Abnormal nuclear stress test R94.39
[2021-05-17] MEDS: allopurinol 300 mg Tablet 150 MG PO (09:12)
[2021-05-17] MEDS: clopidogrel 75 mg Tablet PO (09:12)
[2021-05-17] MEDS: aspirin 325 mg Tablet PO (09:12)
[2021-05-17] MEDS: pantoprazole DR 40 mg Tablet PO (09:12)
[2021-05-17] MEDS: metoprolol tartrate 25 mg Tablet 12.5 MG PO ×2 (09:15→21:34)
--- NOTE | 2021-05-17 10:12 | PC.CHAP ---
Pastoral Care Encounter/Spiritual Assessment Type of Contact [] Declined human resources coordinator visit [] Patient/Family/Request visit [] Outpatient visit [] Follow-up visit [] Physician referral [] Code/Alert [x] Routine visit [] Staff referral [] Actively dying [] Patient sleeping [x] Family support [] [] Out of room [] Palliative care [] [] Receiving care in room [] Pre-surgical visit [] Trauma [] Long length of stay [] ICU visit [] Other: Relational/Emotional Strength [] Patient feels connected with others/family/visitors/staff [] Distress [] Loneliness/isolation [] Abandonment Spirituality of Patient [x] Person of Jaylin [] Attends Orthodox of their Jaylin [] Believes in Prayer [] Reads Bible or Methodist materials [] There are Spiritual issues to be addressed Political Director Interventions [x] Prayer [x] Active listening [x] Non-anxious presence [x] Spiritual/emotional support [] Crisis/trauma care [] Spiritual counseling [] Bereavement support [] Provided bereavement packet [] Provided Bible/devotional materials [] Provided toy/stuffed animal, coloring book to patient or family member [] Provided Communion [] Anointing/[facility] [] Salvation [x] Completed spiritual assessment [] Other: Impact on Illness or Injury [] Angry [] Fearful [] Anxious [] Often cries [] Exhaustion [] Unable to work [] Unable to attend methodist [] Unable to walk/stand [] Unable to read [] Unable to drive [] Unable to eat/drink [] Unable to sleep [] Unable to be with family [] Patient intubated [] Other: Summary patient surgery postponed.. having breakfast.. feeling pretty positive Time spent with patient 15 min x
--- NOTE | 2021-05-17 17:29 | XACV_ITS ---
Exam Room: [facility] Ht: 165 cm Wt: 80 kg BSA: 1.94 m2 Gender: Male : 1955 Any Known Allergies: No known allergies Exam Priority: Routine Procedure(s): Procedure Description: Diagnostic procedure Procedure Description: PCI procedure Procedure Description: Left Heart Catheterization Procedure Description: Drug Eluting Coronary Stent Procedure Description: PTCA Procedure Description: Miscellaneous Procedure Description: ACT Procedure Description: Coronary Angiography Diagnostic Cath Status: Urgent Diagnostic Findings * Left main is a short, medium to large caliber vessel with no significant stenotic lesions. * The left anterior descending artery is a medium caliber vessel which appears to wrap around the LV apex. Right after the second diagonal branch, there was a high-grade around 98% lesion. The first diagonal branch also was found to have around 95% tubular lesion proximally. No other significant extremity lesions were noted. * The left circumflex artery is a medium caliber nondominant vessel with no significant stenotic lesions. * The intermedius artery is a very small caliber vessel with a moderate disease proximally. * Right coronary artery is a medium caliber dominant vessel which was found to have no significant stenotic lesions in the proximal mid and distal segments. The first RV branch was found to have moderate diffuse disease. The PDA branch also was found to have some mild to moderate diffuse disease. No other significant stenotic lesions. PCI Status: Urgent PCI Indication: New Onset Angina <= 2 months Interventional Findings * Procedure detail: We engaged left main artery with XB 3.5 guide catheter. IV heparin was administered to maintain an ACT above 250 seconds throughout the procedure. A run-through guidewire was used to cross the severe LAD stenosis. We predilated stenosis with a 2.5 x 12 mm semicompliant balloon. This was followed by placement of 3 x 15 mm resolute Berny drug-eluting stent. We postdilated the stent with a 3.0 x 6 mm NC balloon. We then turned our attention to proximal diagonal artery stenosis. Run-through guidewire was used to cross the diagonal artery stenosis and was put in distal vessel. We then predilated the lesion with a 2.25 x 8 mm semicompliant balloon. This was followed by placement of a 2.25 x 15 mm resolute Berny drug-eluting stent. At this time final angiogram was performed that showed excellent stent expansion, no residual stenosis and REX-3 flow. Guidewire and guide catheter were removed. TR band was placed to achieve hemostasis. Patient left the Measurement Advisor in a stable condition.. * Mid Left Anterior Descendin% stenosis treated with a AB TREK 2.50X12 RX BALLOON, MDT R BERNY 3.0X15 STANISLAW, and MDT NC EUPHORA RX [id number] BALLOON. 0% residual stenosis, REX: 3 flow. * 1st Diagonal: 100% stenosis treated with a AB TREK 2.25X8 RX BALLOON, and MDT R BERNY 2.25X15 STANISLAW. 0% residual stenosis, REX: 3 flow. Conclusions 1. This is a 65-year-old white male with no significant past medical history except for family history of premature atherosclerotic heart disease, presenting with the recurrent episodes of chest pain for the last 2 weeks with an unstable anginal pattern. Clinical features are consistent with a non-ST elevation myocardial infarction. EKG revealed diffuse T wave inversions in the precordial and inferior leads.Myocardial perfusion imaging revealing moderate area of severe ischemia in the distribution of the left and descending artery/right coronary artery. For further evaluation of his coronary status, a cardiac catheterization was recommended. Patient underwent left heart catheterization with left and right coronary angiogram today. The findings are as follows. 2. Critical stenosis in the wraparound left anterior descending artery just distal to the second diagonal branch. Another high-grade lesion in the proximal segment of the first diagonal branch. Mild to moderate diffuse disease in the right coronary artery and intermedius artery. No other significant stenotic lesions. LVEDP was 29 mmHg. 3. I reviewed and discussed the cardiac catheterization data with the Dr. Krishnan. It was thought to be appropriate to consider PCI of the LAD and diagonal lesions. Dr. Krishnan concurred with this plan and took over further management of this patient at this point. 4. Successful revascularization of mid LAD. Successful revascularization of first diagonal artery. 5. Mid Left Anterior Descending was treated with a Balloon, Drug Eluting Stent, and Balloon. 6. 1st Diagonal was treated with a Balloon, and Drug Eluting Stent. Recommendations * Transfer to [facility]. * Aspirin and Plavix for at least 1 year. * High intensity statin therapy. * Aggressive risk factor modification. * Outpatient cardiology follow up in 7-10 days. Interventional RX Recommendation: PCI w/o planned CABG Diagnostic RX Recommendation: PCI w/o planned CABG Anticoagulation: Heparin LV EDP: 29 mmHg Left Ventriculography Findings: * LV gram was not performed because of the frequent ventricular arrhythmias with the LV catheter. The LVEDP was found to be. * The LV gram was not performed because of the frequent ventricular arrhythmias with the LV catheter. The LVEDP was 29 mmHg. Pressures Phase:Rest AO : 153 / 80 ( 106 ) @ 5:25:00 PM 141 / 77 ( 104 ) @ 5:32:00 PM 148 / 27 ( 57 ) @ 5:43:00 PM LV : 161 / 12 / 29 @ 5:42:00 PM Clinical Evaluation EBL: 5mL-10mL Procedural Details Procedure Consent Obtained. Pre-Procedure Time Out. Identified patient by full name and date of as verbalized by the patient/guarantor. Does the consent match the physician's order: Yes. Accurate & Complete Informed Consent: Yes. Inpatient/Outpatient History & Physical on Chart: Yes. If H&P is completed, is and addenduem needed: No; If yes, is the addendum complete: N/A. Visualize and Verify Site with Patient/Guarantor: N/A. Relevant Radiology Images available: N/A. Pre-op teaching completed and patient verbalized understanding. The risks, benefits, and alternatives of sedation and/or procedure were discussed by physician. The patient agrees to continue. Procedure started. [facility] Clinical Fraility Score: 4: Vulnerable. Measurement Advisor Indications: Worsening Angina, abnormal stress test. Chest Pain Symptom Assessment: Typical Angina Symptoms. Cardiovascular Instability: No. Correct patient, site and procedure confirmed by cath team. PERRLA. Strong, equal hand cartography/mapping technician bilaterally. Lungs clear x 5 lobes. IV Site on Arrival: 20 gauge in the right anticubital. IV Fluids: 0.9% NaCl at KVO. 800 mL infused prior to circus laborer. Pre Procedural Pulses: right radial was 2+. Oxygen started at 2liters/min via nasal canula. right groin was prepped with chloroprep then draped in the usual sterile fashion. right radial was prepped with chloroprep then draped in the usual sterile fashion. Baseline sample Acquired. HR: 51 BPM. Equipment: 6F - Radial. Cardiac Cath Pack. ACIST Manifold Kit Model BT 2000. Heparinized Saline (2 units/mL), 1000 mL bag. Physician arrived. Physician scrubbed in. Immediate Pre-Procedure Time Out. Correct Patient: Yes; Correct Procedure: Yes; Correct Site: Yes; Correct Patient Position: Yes; Correct Supplies: Yes; Dried Flammable Prep: Yes; Blood Products Available: N/A;. Lidocaine 1% infiltrated to the right radial. Arterial access obtained. A [employer]ot [employer] 5 Fr Alvin Radial Catheter, 110cm was advanced over the wire and used for Left coronary angiography. Multiple views taken of left coronary artery. Called Dr Krishnan to come view films. Catheter redirected to the RCA. Catheter removed over the exchange wire. A CRD 5F JR4 Diagnostic Catheter was advanced over the wire and used for Right coronary angiography. Dr Krishnan arrived. Catheter removed over the exchange wire. A 5 kazakh AR MOD catheter in over wire. EDP Sample taken: LV 161/12,29; HR: 47 BPM; SpO2: 98%. Pullback taken: LV Off; AO Off; Mean: , Peak to Peak: , SEP: ; HR: 49 BPM; SpO2: 98%. Multiple views taken of right coronary artery. Table is malfunctioning. Called air cargo specialist supervisor to call [employer]. Wire and catheter out. Soft reboot for system. Sheath flushed periodically to maintain patency. Inventory is CRD [address] Krishnan scrubbed in to perform intervention. 6 kazakh XB 3.5 guide catheter was inserted over the wire. Runthrough guidewire was advanced through the guide catheter to lesion in the mid LAD. Inflation number : 1 A AB TREK 2.50X12 RX BALLOON was prepped and advanced across the Mid LAD , then inflated to 8 JAY for 0:09 seconds. Inflation number: 2 The AB TREK 2.50X12 RX BALLOON was reinflated across the Mid LAD, to 10 JAY for 0:26 seconds. Inflation number: 3 The AB TREK 2.50X12 RX BALLOON was reinflated across the Mid LAD, to 12 JAY for 0:30 seconds. Inflation number: 4 The AB TREK 2.50X12 RX BALLOON was reinflated across the Mid LAD, to 12 JAY for 0:25 seconds. Balloon out. Inflation Number : 5 A MDT R BERNY 3.0X15 STANISLAW -Lot Number# [id number] exp date 01/14/2023 was prepped and advanced across the Mid LAD. The stent was deployed at 12 JAY for 0:36 seconds. Stent balloon out over wire. Results checked. Inflation number : 6 A MDT NC EUPHORA RX [id number] BALLOON was prepped and advanced across the Mid LAD , then inflated to 14 JAY for 0:20 seconds. Inflation number: 7 The MDT NC EUPHORA RX [id number] BALLOON was reinflated across the Mid LAD, to 14 JAY for 0:17 seconds. Balloon out. Results checked. Runthrough repositioned to diaganol. Inflation number : 1 A AB TREK 2.25X8 RX BALLOON was prepped and advanced across the 1st Diag , then inflated to 10 JAY for 0:33 seconds. Balloon out. Results checked. Inflation Number : 2 A MDT R BERNY 2.25X15 STANISLAW -Lot Number# [id number] exp date 09/07/2021 was prepped and advanced across the 1st Diag. The stent was deployed at 12 JAY for 0:26 seconds. Stent balloon out over wire. Wire out. Results checked. Guide catheter out. A 5 kazakh AR MOD catheter in over wire. Catheter removed over the exchange wire. Physician scrubbed out. ACT drawn. Results 191 seconds. Therapeutic limits - pre-heparin administration 90-150 seconds and monitoring heparin during a vascular procedure >250 seconds. A TR Band was successful obtaining hemostatsis at the Right Radial artery insertion site. TR band placed. Hemostasis obtained. Post Procedure: Pulses reassessed and unchanged. PERRLA. Strong, equal hand cartography/mapping technician bilaterally. No VTE prophylaxis required. Medication's Wasted: Lidocaine 1% = 18 mL. Medication's Wasted: Nitro = 49.8 mg. Medication's Wasted: Other = versed 1 mg. Total IV fluids: 125 mL. Contrast type used: Omnipaque 300 mgI/mL, 500 mL bottle. Complications: none. Post-op diagnosis: NSTEMI. Estimated blood loss: 5mL-10mL. Procedure completed. Patient transferred by wheelchair to 1st floor. Vital chart was stopped. Access Site Site: Right Radial artery Sheath Size: 6 Fr Hemostasis Method: TR Band Hemostasis Success: Successful Procedure Medications Start: 5:58 PM Stop: 5:58 PM Medication: Benadryl Amount: 50 mg Route: I.V. Start: 6:11 PM Stop: 6:11 PM Medication: Versed Amount: 1 mg Route: I.V. Start: 6:11 PM Stop: 6:11 PM Medication: Fentanyl Amount: 25 mcg Route: I.V. Start: 6:15 PM Stop: 6:15 PM Medication: Fentanyl Amount: 25 mcg Route: I.V. Start: 6:21 PM Stop: 6:21 PM Medication: Verapamil Amount: 5 mg Route: I.A. Start: 6:21 PM Stop: 6:21 PM Medication: Nitrogylcerin Amount: 200 mcg Route: I.A. Start: 6:24 PM Stop: 6:24 PM Medication: Heparin Amount: 5000 units Route: I.V. Start: 6:46 PM Stop: 6:46 PM Medication: Versed Amount: 1 mg Route: I.V. Start: 6:55 PM Stop: 6:55 PM Medication: Heparin Amount: 5000 units Route: I.V. Start: 7:06 PM Stop: 7:06 PM Medication: Fentanyl Amount: 25 mcg Route: I.V. Start: 7:11 PM Stop: 7:11 PM Medication: Fentanyl Amount: 25 mcg Route: I.V. Start: 7:25 PM Stop: 7:25 PM Medication: Versed Amount: 1 mg Route: I.V. Start: 7:25 PM Stop: 7:25 PM Medication: Heparin Amount: 1000 units Route: I.V. Start: 7:33 PM Stop: 7:33 PM Medication: Hydralazine Amount: 10 mg Route: I.V. Start: 7:37 PM Stop: 7:37 PM Medication: Hydralazine Amount: 10 mg Route: I.V. I, the attending physician, have reviewed and verified all procedure medications. Yes, all medications given per verbal order History/Risk Factors Hypertension: Yes Dyslipidemia: No Peripheral Arterial Disease (PAD): No Myocardial Infarction (AK): No Obesity: No Renal Disease: No Tobacco Use: Never Prior Interventions PCI: No CABG: No Valve Surgery: No Report Signatures Interventional Workflow Finalized by Neri Krishnan MD on 06/01/2021 09:29 AM Diagnostic Workflow Finalized by Dr Wallace Drew MD [facility] on 05/17/2021 10:47 PM
--- NOTE | 2021-05-17 19:32 | PC.NURSE ---
Received report from FAM Flaherty. Patient currently in cardiac factory laborer for procedure.
--- NOTE | 2021-05-17 20:00 | PC.NURSE ---
Patient received from cytogenetics laboratory manager via wheel chair. Spouse remains at bedside due to post cath confusion per Dr Krishnan. Patient has [address] to right wrist. Received in report from FAM Higgins that patient had removed first TR band in cytogenetics laboratory manager due to his confusion. Small hematoma formed which was expressed by FAM Davis in cytogenetics laboratory manager. 2nd TR band placed. Both wrapped with coban. Pulse is palpable to right wrist.
[2021-05-17] MEDS: ondansetron 2 mg/ML SDV 2 mL 4 MG IVP (20:04)
--- NOTE | 2021-05-17 20:26 | P.PN_ITS ---
Subjective Subjective: Interval history: No chest pain during my visit, awaiting heart cath. Vitals/I&O/Wt Last Vital Signs Temp 98.2 F 05/17/21 11:29 Pulse 52 L 05/17/21 11:29 Resp 14 05/17/21 11:29 BP 141/82 05/17/21 11:29 Pulse Ox 98 05/17/21 11:29 05/17/21 05/17/21 05/17/21 06:59 14:59 22:59 Intake Total 240 / 240 Balance 240 / 240 Weight last 48 hrs Weight 80.286 kg Weight 80.649 kg Physical Exam Narrative: EXAM NARRATIVE: at bedside. Const: COMMON NORMALS: no acute distress and patient oriented x3 HENMT: COMMON NORMALS: oropharynx normal Neck/C-Spine: COMMON NORMALS: no JVD Resp: COMMON NORMALS: normal respiratory effort and clear to auscultation bilaterally AUSCULTATION: clear to auscultation bilaterally Cardio: COMMON NORMALS: no JVD, regular rhythm, S1 normal heart sound present, S2 normal heart sound present and No murmurs present (Cardio) RHYTHM: regular rhythm HEART SOUNDS: S1 normal heart sound present and S2 normal heart sound present GI: COMMON NORMALS: Normal to inspection, nondistended, normoactive bowel sounds present, Soft to palpation and non-tender PALPATION: Yes Soft to palpation Extremity: COMMON NORMALS: no joint enlargement and no pedal edema Neuro: COMMON NORMALS: patient oriented x3 and moves all extremities Skin: COMMON NORMALS: no rashes or lesions noted GENERAL SKIN EXAM: no rashes or lesions noted Data : 05/17/21 03:46 05/17/21 03:46 A&P Assessment and plan (1) Chest pain: Coronary angiography today with severe stenotic lesion in LAD, diagonal branch. Status post PCI. Continue post catheterization care. Continue cardiac medications. Labs in the morning. Status: Acute (2) Elevated brain natriuretic peptide (BNP) level: Status: Acute (3) Essential hypertension: Status: Chronic Attestations Medical Necessity Statement*: Continue assessment management following NSTEMI, coronary angiography with PCI. Coding Level of Care Code Acute Account Services Analyst for Isidro Sauceod Diagnoses Chest pain R07.9 Elevated brain natriuretic peptide (BNP) level R79.89 Essential hypertension I10
[2021-05-17] MEDS: atorvastatin 40 mg Tablet PO (21:35)
[2021-05-17] MEDS: sodium chloride 0.9% 1,000 ML 100 ML IV (21:35)
[2021-05-17] MEDS: acetaminophen 325 mg Tablet 650 MG PO (21:36)
--- NOTE | 2021-05-17 21:44 | PC.NURSE ---
Patient more alert and oriented. Answers questions appropriately. Removed coband and 2nd tr band from right wrist. 1st tr band remains in place at this time. Previous hematoma appears resolved presently. Initiated removal of air from 1st TR band at 2124 removing 2ml of air at that time. Removed additional 2ml of air at this time. Site remains free of bleeding or hematoma re-formation presently. Provided patient with hot soup and ice cream per his request.
--- NOTE | 2021-05-17 23:13 | PC.NURSE ---
Complete removal of air from TR band. Band removed. Large area of bruising observed. Cleaned site and applied folded 2x2 and bioocclusive dressing to site. Instructed patient on site care and restrictions. Patient verbalized complete understanding. Patient alert and oriented. No post procedure deficits noted. Patient denies pain or needs presently. No distress observed.
[2021-05-18] VITALS (7 sets, daily range): BP systolic 113–145; BP diastolic 48–89; PULSE 52–72; RESP 0–17; TEMP 36.6–37.3; O2SAT 94–97
--- NOTE | 2021-05-18 03:34 | PC.NURSE ---
Patient refusing to have fluids continue running. He states, I am going home today anyway. Patient attempting to remove IV access due to continued fluids.
--- NOTE | 2021-05-18 05:53 | PC.NURSE ---
Patient refusing to have telemetry wires placed at this time. Stated, I just want to sleep without being all tangled up.
[2021-05-18 06:00] LABS: Basophils # 0.1 10^3/uL (0.0-0.1); Basophils % 0.7 %; Eosinophils # 0.1 10^3/uL (0.0-0.8); Eosinophils % 0.8 %; Hematocrit 45.3 % (42.0-52.0); Lymphocytes # 1.8 10^3/uL (0.8-4.8); Lymphocytes % 25.2 %; Mean Corpuscular HGB Conc 33.1 g/dL (30.0-36.0); Mean Corpuscular Hemoglobin 28.5 pg (28.0-34.0); Mean Corpuscular Volume 86.1 fL (80-94); Mean Platelet Volume 10.1 fL (7.4-10.4); Monocytes # 0.7 10^3/uL (0.2-0.9); Monocytes % 10.4 %; Neutrophils # 4.44 10^3/uL (1.8-7.7); Neutrophils % 62.6 %; Nucleated Red Blood Cells % 0 %; Platelet Count 182 10^3/cmm (130-400); Red Blood Count 5.26 10^6/uL (4.1-5.3); Red Cell Distribution Width 13.8 % (12.1-15.1); White Blood Count 7.1 10^3/uL (4.0-10.0)
[2021-05-18 06:19] LABS: Anion Gap 12.7 (5-19); Blood Urea Nitrogen 14 mg/dL (8-23); Calcium 8.5 mg/dL (8.5-10.5); Carbon Dioxide 25 mmol/L (22-29); Chloride 106 mmol/L (98-107); Glomerular Filtration Rate 74.8 mL/min (90-130); Glucose 86 mg/dL (65-115); Osmolality Calculated 290 mOsm/kg (285-295); Potassium 3.7 mmol/L (3.5-5.1); Sodium 140 mmol/L (136-145)
[2021-05-18] MEDS: metoprolol tartrate 25 mg Tablet 12.5 MG PO (08:57)
[2021-05-18] MEDS: pantoprazole DR 40 mg Tablet PO (08:57)
[2021-05-18] MEDS: allopurinol 300 mg Tablet 150 MG PO (08:57)
[2021-05-18] MEDS: aspirin 81 mg Chew Tablet PO (08:57)
[2021-05-18] MEDS: bisacodyl 5 mg Tablet 10 MG PO (08:57)
[2021-05-18] MEDS: clopidogrel 75 mg Tablet PO (08:58)
--- NOTE | 2021-05-18 11:23 | P.PN_ITS ---
Subjective Subjective: Interval history: Patient is feeling okay with no chest pain or chest tightness. No shortness of breath. He underwent a cardiac catheterization yesterday. He was found to have a high-grade lesion in the distal LAD and also in the proximal segment of the first diagonal branch of the left anterior descending artery. He underwent PCI of these regions by Dr. Davidson. Medications: Reviewed: Yes Medication Review Details: Current Medications Acetaminophen (Acetaminophen 325 Mg Tablet) 650 mg PO Q6H PRN PRN Reason: Mild/Mod Pain Or Temp >/= 101 Last Admin: 05/17/21 21:36 Dose: 650 mg Documented by: Acetaminophen (Acetaminophen 325 Mg Tablet) 650 mg PO Q6H PRN PRN Reason: MILD PAIN Al Hydrox/Mg Hydrox/Simethicone (Ehwt-Doy-Txsepvsuu-Fidelina 30 Ml Udc) 30 ml PO Q15M PRN PRN Reason: INDIGESTION Allopurinol (Allopurinol 300 Mg Tablet) 150 mg PO DAILY [facility] Last Admin: 05/18/21 08:57 Dose: 150 mg Documented by: Aspirin (Aspirin 81 Mg Chew Tablet) 81 mg PO DAILY [facility] Last Admin: 05/18/21 08:57 Dose: 81 mg Documented by: Atorvastatin Calcium (Atorvastatin 40 Mg Tablet) 40 mg PO BEDTIME [facility] Last Admin: 05/17/21 21:35 Dose: 40 mg Documented by: Atropine Sulfate (Atropine 1 Mg/Ml Sdv 1 Ml) 0.5 mg IVP PRN PRN PRN Reason: Symptomatic bradycardia Bisacodyl (Bisacodyl 5 Mg Tablet) 10 mg PO DAILY PRN; Protocol PRN Reason: Constipation (see protocol) Last Admin: 05/18/21 08:57 Dose: 10 mg Documented by: Calcium Carbonate (Calcium Carbonate 500 Mg Chew Tablet) 1,000 mg PO Q4H PRN PRN Reason: DYSPEPSI Clopidogrel Bisulfate (Clopidogrel 75 Mg Tablet) 75 mg PO DAILY [facility] Last Admin: 05/18/21 08:58 Dose: 75 mg Documented by: Fentanyl (Fentanyl 50 Mcg/Ml Inj 2ml) 50 mcg IVP PRN PRN PRN Reason: Prior to sheath removal Sodium Chloride (Sodium Chloride 0.9%) 1,000 mls @ 50 mls/hr IV .Q20H [facility] Last Infusion: 05/17/21 21:44 Dose: Infused Documented by: Sodium Chloride (Sodium Chloride 0.9%) 1,000 mls @ 100 mls/hr IV .Q10H [facility] Last Infusion: 05/18/21 03:35 Dose: Infused Documented by: Magnesium Hydroxide (Magnesium Hydroxide 30 Ml Udc) 30 ml PO DAILY PRN PRN Reason: CONSTIPATION Metoprolol Tartrate (Metoprolol Tartrate 25 Mg Tablet) 12.5 mg PO BID@0900,2100 [facility] Last Admin: 05/18/21 08:57 Dose: 12.5 mg Documented by: Naloxone HCl (Naloxone 0.4 Mg/Ml Sdv) 0.1 mg IVP Q2M PRN PRN Reason: RESPIRATORY RATE < 8/MIN Nitroglycerin (Nitroglycerin 0.4 Mg Sublingual Tablet) 0.4 mg SUBLINGUAL Q5M PRN PRN Reason: CHEST PAIN Non-Formulary Medication (Cyclosporine [Restasis]) 1 drop EYEAFF BID [facility] Last Admin: 05/17/21 18:03 Dose: Not Given Documented by: Ondansetron HCl (Ondansetron 2 Mg/Ml Sdv 2 Ml) 4 mg IVP Q8H PRN PRN Reason: vomiting, or N/V if npo Last Admin: 05/17/21 20:04 Dose: 4 mg Documented by: Ondansetron HCl (Ondansetron 2 Mg/Ml Sdv 2 Ml) 4 mg IVP Q2M PRN PRN Reason: NAUSEA Pantoprazole Sodium (Pantoprazole Dr 40 Mg Tablet) 40 mg PO DAILY [facility] Last Admin: 05/18/21 08:57 Dose: 40 mg Documented by: Temazepam (Temazepam 15 Mg Capsule) 15 mg PO BEDTIME PRN PRN Reason: INSOMNIA Vitals/I&O/Wt Last Vital Signs Temp 99.2 F 05/18/21 08:00 Pulse 72 05/18/21 08:00 Resp 15 05/18/21 08:00 BP 145/89 05/18/21 08:00 Pulse Ox 97 05/18/21 08:00 05/17/21 05/18/21 05/18/21 22:59 06:59 14:59 Intake Total 1128.333 / 1368.333 750 / 2118.333 Output Total 700 / 700 725 / 1425 Balance 428.333 / 668.333 25 / 693.333 Weight last 48 hrs Weight 177 lb Physical Exam Narrative: EXAM NARRATIVE: GENERAL: The patient is alert and oriented times three. Not in any acute distress. HEENT: No significant pallor, icterus or lymphadenopathy. The pupils are symmetrical in size. Oral cavity: There are no mucous membrane lesions. Funduscopic examination: The fundus is not visualized. NECK: Trachea appears to be central. No masses noted. No JVD or thyromegaly appreciated. No carotid bruit. RESPIRATORY: Chest is symmetrical. No intercostals muscle retraction or any accessory muscle activation. There is no chest wall tenderness. Breath sounds are heard bilaterally. No rales or rhonchi heard. No evidence of any consolidation. BREASTS: Deferred. HEART: The PMI could not be palpated. No palpable precordial events. S1 and S2 are normal. No S3 or S4 heard. No pericardial rub or any click heard. ABDOMEN: No vessel pulsations or distention. No tenderness. No organomegaly appreciated. No abdominal bruit. Bowel sounds are normally heard. : Deferred. RECTAL: Deferred. LYMPHATIC: No lymphadenopathy noted in the neck or groin. EXTREMITIES: No edema or cyanosis. The right radial arterial puncture site has no hematoma or bleeding. Good distal pulses. MUSCULOSKELETAL: Acute joint deformities or swelling. SKIN: There are no significant scars or skin rash noted. NEUROPSYCHIATRIC: The patient is alert and oriented x3. Appears to be in a good mood. The higher functions are grossly within normal limits. No tremors or rigidity noted. Data : 05/18/21 04:16 05/18/21 04:16 Other Labs: Laboratory Last Values WBC 7.1 10^3/uL (4.0-10.0) 05/18/21 04:16 RBC 5.26 10^6/uL (4.1-5.3) 05/18/21 04:16 Hgb 15.0 g/dL (11.7-16.6) 05/18/21 04:16 Hct 45.3 % (42.0-52.0) 05/18/21 04:16 MCV 86.1 fL (80-94) 05/18/21 04:16 MCH 28.5 pg (28.0-34.0) 05/18/21 04:16 MCHC 33.1 g/dL (30.0-36.0) 05/18/21 04:16 RDW 13.8 % (12.1-15.1) 05/18/21 04:16 Plt Count 182 10^3/cmm (130-400) 05/18/21 04:16 MPV 10.1 fL (7.4-10.4) 05/18/21 04:16 Neut % (Auto) 62.6 % 05/18/21 04:16 Lymph % (Auto) 25.2 % 05/18/21 04:16 [place] % (Auto) 10.4 % 05/18/21 04:16 Eos % (Auto) 0.8 % 05/18/21 04:16 Baso % (Auto) 0.7 % 05/18/21 04:16 Neut # (Auto) 4.44 10^3/uL (1.8-7.7) 05/18/21 04:16 Lymph # (Auto) 1.8 10^3/uL (0.8-4.8) 05/18/21 04:16 [place] # (Auto) 0.7 10^3/uL (0.2-0.9) 05/18/21 04:16 Eos # (Auto) 0.1 10^3/uL (0.0-0.8) 05/18/21 04:16 Baso # (Auto) 0.1 10^3/uL (0.0-0.1) 05/18/21 04:16 Nucleated RBC % (auto) 0 % 05/18/21 04:16 Nucleated RBCs # 0.0 /100WBC 05/18/21 04:16 PT 13.80 SECONDS (12.1-14.9) 05/16/21 09:49 INR 1.03 (0.8-1.2) 05/16/21 09:49 APTT 28.9 SECONDS (23.9-36.7) 05/16/21 09:49 Sodium 140 mmol/L (136-145) 05/18/21 04:16 Potassium 3.7 mmol/L (3.5-5.1) 05/18/21 04:16 Chloride 106 mmol/L (98-107) 05/18/21 04:16 Carbon Dioxide 25 mmol/L (22-29) 05/18/21 04:16 Anion Gap 12.7 (5-19) 05/18/21 04:16 BUN 14 mg/dL (8-23) 05/18/21 04:16 Creatinine 1.0 mg/dL (0.7-1.2) 05/18/21 04:16 GFR Calculation 74.8 mL/min (90-130) L 05/18/21 04:16 Glucose 86 mg/dL (65-115) 05/18/21 04:16 Estimat Average Glucose 123 05/16/21 09:49 Hemoglobin A1c 5.9 % (4.0-6.0) 05/16/21 09:49 Calculated Osmolality 290 mOsm/kg (285-295) 05/18/21 04:16 Calcium 8.5 mg/dL (8.5-10.5) 05/18/21 04:16 Magnesium 2.0 mg/dL (1.7-2.3) 05/16/21 09:49 Troponin T Baseline 49 ng/L (0-15) H 05/16/21 09:49 Troponin T 120 Minute 44.02 ng/L (0-15) H 05/16/21 11:50 Delta Troponin T -4.98 ABS# (0-10) L 05/16/21 11:50 NT-Pro-B Natriuret Pep 1097 pg/mL (0-125) H 05/16/21 09:49 Triglycerides 77 mg/dL (0-150) 05/16/21 09:49 Cholesterol 165 mg/dL (0-200) 05/16/21 09:49 LDL Cholesterol, Calc 98 mg/dL (50-129) 05/16/21 09:49 HDL Cholesterol 52 mg/dL (60-100) L 05/16/21 09:49 LDL/HDL Ratio 1.88 RATIO (0.00-3.22) 05/16/21 09:49 Cholesterol/HDL Ratio 3.17 mg/dL (1.0-5.00) 05/16/21 09:49 A&P Assessment and plan (1) Atherosclerotic heart disease of [place] coronary artery with unstable angina pectoris: Patient status post cardiac colorization, status post PCI of the LAD and diagonal artery. Currently seems to be doing okay. Status: Acute (2) Non-ST elevation myocardial infarction (NSTEMI): Status: Acute (3) Dyslipidemia: Agree with the atorvastatin. May continue on this medication for the time being. Status: Acute (4) Abnormal nuclear stress test: Underwent a cardiac colorization yesterday and the findings are as mentioned above. Status: Acute Additional A&P Information Other problems are History of osteoarthritis History of gouty arthritis Family history of premature atherosclerotic heart disease If the patient continues to remain stable, he may be discharged home today. Patient may continue on the Plavix, aspirin, atorvastatin, low-dose of beta- luis fernando and a low-dose of SERAFIN inhibitor. Please make an appointment for him to be seen by the nurse practitioner next week at the [facility]. Appointment with me in 1 month. Attestations Medical Necessity Statement*: Possible discharge home today. Discussed with Dr. Murcia Coding Level of Care Code Acute Employee Communications Intern for Isidro Saucedo Diagnoses Atherosclerotic heart disease of [place] coronary artery with unstable angina pectoris I25.110 Non-ST elevation myocardial infarction (NSTEMI) I21.4 Dyslipidemia E78.5 Abnormal nuclear stress test R94.39
[2021-05-18] MEDS: lisinopril 5 mg Tablet PO (11:48)
--- NOTE | 2021-05-18 12:02 | P.DS_ITS ---
Discharge Providers Date of Admission: 05/16/21 18:34 Date of Discharge: May 18, 2021 Attending Provider at Admission: Raquel Lee MD Attending Provider at Discharge: Rickey Murcia Primary Care Provider: Ronni Burk Diagnoses at Discharge Discharge Diagnosis (1) Atherosclerotic heart disease of [place] coronary artery with unstable angina pectoris: Status: Acute (2) Non-ST elevation myocardial infarction (NSTEMI): Status: Acute (3) Dyslipidemia: Status: Acute (4) Abnormal nuclear stress test: Status: Acute Reason for Visit Reason for Visit: chest pain Hospital Course Hospital Course Pleasant 65-year-old gentleman with history of HTN, chronic sinus bradycardia, other chronic problems, was transferred for admission and additional work-up from outside facility after episode of chest pain, found to have troponin elevation with finding of abnormal stress test, received treatment for non- STEMI, and underwent cardiac cath with finding of two-vessel disease with high- grade lesion in distal LAD and proximal segment of first diagonal branch. Underwent PCI with stenting. On discharge started on Plavix, aspirin, beta- luis fernando, statin. Low-dose SERAFIN inhibitor. He is asked to follow-up with primary provider to continue optimization of risk factors of coronary disease in addition to follow-up with cardiology. He is asked to discontinue celecoxib due to cardiovascular risk factors associated with the medicine. Physical Exam Narrative: EXAM NARRATIVE: at bedside. Const: COMMON NORMALS: no acute distress and patient oriented x3 OTHER: He is doing very well, not having any complaints. No chest pain. In good spirits, ready to return home. HENMT: COMMON NORMALS: oropharynx normal Neck/C-Spine: COMMON NORMALS: no JVD Resp: COMMON NORMALS: normal respiratory effort and clear to auscultation bilaterally AUSCULTATION: clear to auscultation bilaterally Cardio: COMMON NORMALS: no JVD, regular rhythm, S1 normal heart sound present, S2 normal heart sound present and No murmurs present (Cardio) RHYTHM: regular rhythm HEART SOUNDS: S1 normal heart sound present and S2 normal heart sound present GI: COMMON NORMALS: Normal to inspection, nondistended, normoactive bowel sounds present, Soft to palpation and non-tender PALPATION: Yes Soft to palpation Extremity: COMMON NORMALS: no joint enlargement and no pedal edema Neuro: COMMON NORMALS: patient oriented x3 and moves all extremities Skin: COMMON NORMALS: no rashes or lesions noted GENERAL SKIN EXAM: no rashes or lesions noted Discharge Data Data Completed and Pending: Completed Studies During Hospitalization Category Date Time Status Sestamibi Stress Test Request Routi ne Exams 05/16/21 04:38 Draft NM yamilet perf SPECT r/s* [id number] Routin e Nuc Med 05/16/21 04:39 Completed CV. echo complete * [id number] Routine Ultrasound 05/16/21 04:38 Completed Pending at discharge Category Date Time Status IT RISK ANALYST request for service Routin e Exams 05/17/21 17:29 Taken Basic Metabolic P kelsi AM LABS Lab 05/19/21 04:00 Ordered Complete Blood Co unt w/Auto AM LABS Lab 05/19/21 04:00 Ordered Labs from last 24 hours 05/18/21 05/18/21 04:16 04:16 WBC 7.1 RBC 5.26 Hgb 15.0 Hct 45.3 MCV 86.1 MCH 28.5 MCHC 33.1 RDW 13.8 Plt Count 182 MPV 10.1 Neut % (Auto) 62.6 Lymph % (Auto) 25.2 [place] % (Auto) 10.4 Eos % (Auto) 0.8 Baso % (Auto) 0.7 Neut # (Auto) 4.44 Lymph # (Auto) 1.8 [place] # (Auto) 0.7 Eos # (Auto) 0.1 Baso # (Auto) 0.1 Nucleated RBC % (a uto) 0 Nucleated RBCs # 0.0 Sodium 140 Potassium 3.7 Chloride 106 Carbon Dioxide 25 Anion Gap 12.7 BUN 14 Creatinine 1.0 GFR Calculation 74.8 L Glucose 86 Calculated Osmolal ity 290 Calcium 8.5 Vitals: Last Vital Signs Temp 99.2 F 05/18/21 11:56 Pulse 72 05/18/21 11:56 Resp 15 05/18/21 11:56 BP 145/89 05/18/21 11:56 Pulse Ox 97 05/18/21 11:56 Discharge Plan Discharge Patient Disposition: Home Condition: Stable Prescriptions: New atorvastatin 40 mg Tablet 40 mg PO BEDTIME Qty: 30 RF: 0 clopidogrel 75 mg Tablet 75 mg PO DAILY Qty: 30 RF: 0 pantoprazole 40 mg Tablet,Delayed Release (Dr/Ec) 40 mg PO DAILY Qty: 30 RF: 0 Children's Aspirin 81 mg Tablet,Chewable 81 mg PO DAILY Qty: 30 RF: 0 metoprolol tartrate 25 mg Tablet 12.5 mg PO BID@0900,2100 Qty: 30 RF: 0 lisinopril 5 mg tablet 2.5 mg PO DAILY 30 Days Qty: 30 RF: 0 Continued allopurinol 300 mg tablet 150 mg PO DAILY Qty: 90 RF: 1 fluticasone propionate 50 mcg/actuation spray,suspension See Rx Instructions .ROUTE .COMPLEX Qty: 16 RF: 0 Restasis 0.05 % Dropperette 1 drp ophthalmic (eye) BID RF: 0 ketoconazole 2 % cream 1 applic TOPICAL BID PRN (Reason: Itching) RF: 0 omega 3-vitamin E-fish oil 1 cap PO BID RF: 0 triamcinolone acetonide 0.1 % cream 1 applic TOPICAL BID PRN (Reason: Itching) RF: 0 Discontinued celecoxib 100 mg capsule 100 mg PO BID Qty: 180 RF: 3 Discharge Orders: Discharge Order (Routine); Ordered 05/18/21 Ordered By: Rickey Murcia Referrals: Wallace Drew MD [Physician] - 05/29/21 10:45 am (You have a cardiology Followup with Dr. Drew at [facility] on May 29 at 10:45am) Ronni Burk [Primary Care Provider] - 05/23/21 10:00 am (You have a hosital followup with Dr. Burk at [facility] on May 23 at 10:00am) Alexandra Richards FNP [Nurse Practitioner] - 05/22/21 10:30 am (You have a post Procedure Followup with NICOL Tinajero at [facility] on May 22 at 10:30am) Discharge Diet: Cardiac Discharge Activity: Increase activity as tolerated Patient Instructions: Metoprolol (By mouth), Lisinopril (By mouth), Clopidogrel (By mouth), Myocardial Infarction (DC) Activity Restrictions/Additional Instructions: Avoid lifting more than 3 Lbs for 2 days. In case of any chest pain, shortness of breath, or other concerning symptoms, please seek medical attention without delay. Please follow-up with your primary doctor and extruder operator. Please know you are started on aspirin, Plavix. Please make sure you take your Plavix without missing any doses due to risk of clotting off of the stent and serious complications. You are also started on metoprolol and cholesterol medication to reduce your risk of progression of cardiovascular disease. Please monitor your blood pressures at home 3 times daily. Work with your primary provider to optimize blood pressure control. Discharge Attestations Time Spent in Discharge Care*: greater than 30 min Quality Metrics Clinical Quality Measures During this hospital stay, did patient experience: AMI Clinical Trial Participant: No Contraindication to aspirin (AMI): Aspirin given Contraindication to statin: Statin prescribed Contraindication to PCI: PCI performed Coding Level of Care Code Acute Chg FW DC note Exam Comprehensive Diagnoses Atherosclerotic heart disease of [place] coronary artery with unstable angina pectoris I25.110 Non-ST elevation myocardial infarction (NSTEMI) I21.4 Dyslipidemia E78.5 Abnormal nuclear stress test R94.39
== END 2021-05-18 12:50 | disposition home or self-care (01) | DRG 247 ==
PROVIDERS: Internal Medicine; Internal Medicine Cardiovascular Disease; Admitting Provider Hospitalist; PCP Family Medicine; Visit Provider Internal Medicine
DX: I21.4 Non-ST elevation (NSTEMI) myocardial infarction (principal); I10 Essential (primary) hypertension; M10.9 Gout, unspecified; M19.90 Unspecified osteoarthritis, unspecified site; I51.7 Cardiomegaly; Z82.49 Family history of ischemic heart disease and other diseases of the circulatory system; I25.110 Atherosclerotic heart disease of native coronary artery with unstable angina pectoris; E78.5 Hyperlipidemia, unspecified
CPT/HCPCS: 36415; 78452; 80048; 80061; 83036; 83735; 83880; 84484; 85025; 85347; 85610; 85730; 93005; 93017; 93306; 93452; 96372; A9500; C1725; C1769; C1874; C1887; C1894; C9600; C9601; G0378; G0379; J0360; J1200; J1644; J1650; J2250; J2405; J2785; J3010; J3490; J7030; J7799; Q0163; Q9967

== ENCOUNTER 2021-10-27 14:00 | Outpatient (CLI) | payer MEDICARE, OTHER, SELFPAY ==
--- NOTE | 2021-10-27 14:15 | USCV_ITS ---
Yordan Naylor Age: 65 Gender: M : 1955 Exam Date: 10/27/2021 14:09 Ordering Phys: Wallace Drew MD ([email or web address]) Technologist: LAM Exam Location: [facility] [place] Indication: DISORDER OF ARTERIES AND ARTERIOLES Risk Factors: Previous Vascular Surgery: Right Brachial BP: / Left Brachial BP: / Right Left Velocity (cm/s) Spectral Plaque Velocity (cm/s) Spectral Plaque Syst/Diast Broadening Syst/Diast Broadening 87.10/ 9.90 Prox CCA 126.70/ 13.30 64.40/ 14.40 Mid CCA 90.60 / 13.70 67.00/ 11.90 Distal CCA 88.90 / 15.40 44.70/ 9.70 Prox ICA 51.30 / 13.50 63.20/ 15.30 Mid ICA 63.90 / 17.40 58.10/ 13.70 Distal ICA 63.90 / 16.00 76.30 ECA 77.00 0.73 ICA/CCA 0.50 Antegrade Vertebral Antegrade 28.00/ 7.80 cm/s 59.80/ 14.00 cm/s Tri Subclavian Tri 170.9 86.00 0 FINDINGS Intimal thickening and minimal plaques in the common carotid arteries bilaterally. Mild diffuse plaques at the bifurcation internal carotid arteries bilaterally Antegrade flow in the vertebral arteries bilaterally. Normal Doppler flow velocities in the subclavian arteries bilaterally CONCLUSIONS Intimal thickening and minimal plaques in the common carotid arteries bilaterally. Mild diffuse plaques at the bifurcation internal carotid arteries bilaterally No significant stenosis in the vertebral /or subclavian arteries bilaterally Dr Wallace Drew MD [facility] (Electronically Signed) Final Date: 02 November 2021 01:02 S
== END 2021-10-27 14:01 | disposition home or self-care (01) ==
PROVIDERS: PCP Family Medicine; Visit Provider Internal Medicine Cardiovascular Disease
DX: I77.9 Disorder of arteries and arterioles, unspecified (principal)
CPT/HCPCS: 93880

== ENCOUNTER → 2022-06-27 09:57 | Outpatient (BNVA) | payer MEDICARE, OTHER, SELFPAY | PROVIDERS: PCP Family Medicine; Visit Provider Internal Medicine Cardiovascular Disease | DX: I25.110 Atherosclerotic heart disease of native coronary artery with unstable angina pectoris (principal); I10 Essential (primary) hypertension; R09.89 Other specified symptoms and signs involving the circulatory and respiratory systems; I49.9 Cardiac arrhythmia, unspecified; E78.5 Hyperlipidemia, unspecified | CPT/HCPCS: 99214 ==

== ENCOUNTER → 2022-07-04 08:37 | Outpatient (BNVA) | payer MEDICARE, OTHER, SELFPAY | PROVIDERS: PCP Family Medicine; Visit Provider Internal Medicine Cardiovascular Disease | DX: R00.1 Bradycardia, unspecified (principal) | CPT/HCPCS: 93005 ==

== ENCOUNTER → 2022-08-29 13:51 | Outpatient (BNVA) | payer MEDICARE, OTHER, SELFPAY | PROVIDERS: PCP Family Medicine; Visit Provider Internal Medicine Cardiovascular Disease | DX: R00.1 Bradycardia, unspecified (principal); E78.5 Hyperlipidemia, unspecified; I25.110 Atherosclerotic heart disease of native coronary artery with unstable angina pectoris; I10 Essential (primary) hypertension | CPT/HCPCS: 99214 ==

== ENCOUNTER → 2023-01-08 09:47 | Outpatient (BNVA) | payer MEDICARE, OTHER, SELFPAY | PROVIDERS: PCP Family Medicine; Visit Provider Surgery | DX: Z12.11 Encounter for screening for malignant neoplasm of colon (principal) | CPT/HCPCS: 99024 ==

== ENCOUNTER 2023-02-08 06:39 | Day surgery (SDC) | payer MEDICARE, OTHER, SELFPAY ==
[2023-02-05 11:14] VITALS: BMI 27.8
[2023-02-08 07:01] VITALS: BP 130/88; PULSE 60; RESP 16; TEMP 36.5; O2SAT 96
[2023-02-08] MEDS: sodium chloride 0.9% 1,000 ML 30 ML IV (07:08)
--- NOTE | 2023-02-08 07:28 | ANES.PREANE2 ---
Pre-Anesthetic Assessment Height/Weight: Height 1.65 m Weight 75.75 kg Temp Pulse Resp BP Pulse Ox O2 Del Method 97.7 F 60 16 130/88 96 02/08/23 07:01 02/08/23 07:01 02/08/23 07:01 02/08/23 07:01 02/08/23 07:01 02/08/23 07:01 Preop Diagnosis: Screening Operation Date: 02/08/23 08:15 Proposed Procedures p 72438 colon Z12.11(Not Applicable) - Jacinto Ramon, DO Was Clonidine taken within 24 hours: N/A Last intake: Intake Last Liquid Date 02/07/23 Last Liquid Time 22:30 Last Solid Date 02/06/23 Social No alcohol and No tobacco Exam alert, oriented x 3, clear to auscultation bilaterally and regular rate & rhythm Airway Submandibular: within normal limits Cervical ROM: within normal limits Mallampati: Class II Dentition: full History/ROS No significant history except as noted and No significant complaints CV/HEM Coronary Artery Disease, Hypertension and Myocardial Infarction Hx stents None reported Hepatic None reported GI None reported Metabolic None reported Musc/skel Osteoarthritis/DJD Neuropsych None reported Anesthetic Plan ASA status: 3 Anesthesia: Anesthesia Evaluation and MAC Risk of > 500 ml blood loss (7ml/kg in children): No Medications/Allergies Home Medications Medication Instructions Recorded Confirmed Last Taken Type ketoconazole 2 % topical cream 1 applic topical BID PRN Itching 05/16/21 02/08/23 Unknown History triamcinolone acetonide 0.1 % 1 applic topical BID PRN Itching 05/16/21 02/08/23 Unknown History topical cream fluticasone propionate 50 See Rx Instructions .Route 06/23/21 02/08/23 Unknown Rx mcg/actuation nasal .COMPLEX #16 grams spray,suspension magnesium oxide 400 mg (241.3 mg 400 mg PO DAILY 06/27/22 02/08/23 02/05/23 History magnesium) tablet aspirin 81 mg chewable tablet 81 mg PO DAILY #90 tabs 11/13/22 02/08/23 02/05/23 Rx (Children's Aspirin) atorvastatin 40 mg tablet 40 mg PO BEDTIME #90 tabs 11/13/22 02/08/23 02/08/23 Rx losartan 50 mg tablet 50 mg PO DAILY 02/05/23 02/08/2323 History Allergies Allergy/AdvReac Type Severity Reaction Status Date / Time No Known Allergies Allergy Verified 02/08/23 06:59 Current Medications Generic Name Dose Route Start Last Admin Trade Name Kaet PRN Reason Stop Dose Admin Sodium Chloride 1,000 mls @ 30 mls/hr 02/08/23 07:00 02/08/23 07:08 Sodium Chloride 0.9% IV 02/09/23 06:59 30 mls/hr .Q24H GILMA Administration PFSH Anesthesia Medical History Chronic sinus bradycardia Elevated brain natriuretic peptide (BNP) level Essential hypertension Gout Non-ST elevation myocardial infarction (NSTEMI) Osteoarthritis Surgical History History of colonoscopy (~2016) History of esophagogastroduodenoscopy (EGD) (~2012) History of surgery Varicocelectomy Hx of repair of rotator cuff Family History Father CAD (coronary artery disease) Onset in his 50s, had some type of cardiac intervention Mother Dementia Diabetes Denies family history of Clotting disorder Chronic kidney disease (CKD) Suicide Anesthesia complication Bleeding disorder Lung disease Cancer Stroke Social History (System 01/16/23 @ 12:01 by Zunilda Brar) Smoking and tobacco status: never smoked Alcohol intake: never Household members: spouse Data Anesthesia Cardiac Studies: Echocardiogram 05/16/21 Sestamibi Stress Test (Cardiology) 05/16/21 Cardiac Event Monitor 07/04/22
--- NOTE | 2023-02-08 08:11 | PM.HP ---
Providers/Chief Complaint Primary Care Provider: Ronni Burk Chief Complaint: Z12.11 encounter for screening for malignant neopl History of Present Illness Yordan Naylor is a 67 year old male here for a screening colonoscopy Medications/Allergies Home Medications Medication Instructions Recorded Confirmed Last Taken Type ketoconazole 2 % topical cream 1 applic topical BID PRN Itching 05/16/21 02/08/23 Unknown History triamcinolone acetonide 0.1 % 1 applic topical BID PRN Itching 05/16/21 02/08/23 Unknown History topical cream fluticasone propionate 50 See Rx Instructions .Route 06/23/21 02/08/23 Unknown Rx mcg/actuation nasal .COMPLEX #16 grams spray,suspension magnesium oxide 400 mg (241.3 mg 400 mg PO DAILY 06/27/22 02/08/23 02/05/23 History magnesium) tablet aspirin 81 mg chewable tablet 81 mg PO DAILY #90 tabs 11/13/22 02/08/23 02/05/23 Rx (Children's Aspirin) atorvastatin 40 mg tablet 40 mg PO BEDTIME #90 tabs 11/13/22 02/08/23 02/08/23 Rx losartan 50 mg tablet 50 mg PO DAILY 02/05/23 02/08/23 02/06/23 History Allergies Allergy/AdvReac Type Severity Reaction Status Date / Time No Known Allergies Allergy Verified 02/08/23 06:59 PFSH Acute PFSH: Medical History Chronic sinus bradycardia Elevated brain natriuretic peptide (BNP) level Essential hypertension Gout Non-ST elevation myocardial infarction (NSTEMI) Osteoarthritis Surgical History History of colonoscopy (~2016) History of esophagogastroduodenoscopy (EGD) (~2012) History of surgery Varicocelectomy Hx of repair of rotator cuff Family History Father CAD (coronary artery disease) Onset in his 50s, had some type of cardiac intervention Mother Dementia Diabetes Denies family history of Clotting disorder Chronic kidney disease (CKD) Suicide Anesthesia complication Bleeding disorder Lung disease Cancer Stroke Social History (System 01/16/23 @ 12:01 by Zunilda Brar) Smoking and tobacco status: never smoked Alcohol intake: never Household members: spouse Vitals/I&O/Wt Last Vital Signs Temp 97.7 F 02/08/23 07:01 Pulse 60 02/08/23 07:01 Resp 16 02/08/23 07:01 BP 130/88 02/08/23 07:01 Pulse Ox 96 02/08/23 07:01 O2 Del Method 02/08/23 07:01 A&P Assessment and plan (1) Colon cancer screening: Plan Screening colonoscopy Attestations Medical Necessity Statement*: Home Coding Level of Care Code Acute Code for Chg Fwd Diagnoses Colon cancer screening Z12.11
[2023-02-08 08:38] VITALS: BP 128/68; PULSE 52; RESP 12; TEMP 36.1; O2SAT 97
[2023-02-08 08:50] VITALS: BP 125/70; PULSE 51; RESP 18; O2SAT 98
--- NOTE | 2023-02-08 11:33 | ANE.PACU2 ---
Inpatient post-anesthesia follow up: Airway intact: Yes Vital signs: Temperature 97.0 F Pulse Rate 51 Respiratory Rate 18 Blood Pressure 125/70 Pulse Oximetry 98 Oxygen Delivery Me thod Room Air Oxygen Flow Rate Fraction of Inspir ed Oxygen Hydration adequate: Yes Nausea and vomiting: No Pain level: 1 Mental status: Baseline
== END 2023-02-08 09:17 | disposition home or self-care (01) ==
PROVIDERS: PCP Family Medicine; Visit Provider Surgery
PROC: 0DJD8ZZ Inspection of Lower Intestinal Tract, Via Natural or Artificial Opening Endoscopic (ICD-10-PCS; CPT 45378; principal; 2023-02-08 08:15)
DX: Z12.11 Encounter for screening for malignant neoplasm of colon (principal); D12.8 Benign neoplasm of rectum; I10 Essential (primary) hypertension; I25.2 Old myocardial infarction; M19.90 Unspecified osteoarthritis, unspecified site; I25.10 Atherosclerotic heart disease of native coronary artery without angina pectoris
CPT/HCPCS: 45385; 88305; J2704; J7030

== ENCOUNTER → 2023-02-19 16:12 | Outpatient (BNVA) | payer MEDICARE, OTHER, SELFPAY | PROVIDERS: PCP Family Medicine; Visit Provider Surgery | DX: D12.6 Benign neoplasm of colon, unspecified (principal) | CPT/HCPCS: 99212 ==

== ENCOUNTER → 2023-02-25 14:10 | Outpatient (BNVA) | payer MEDICARE, OTHER, SELFPAY | PROVIDERS: PCP Family Medicine; Visit Provider Internal Medicine Cardiovascular Disease | DX: R00.1 Bradycardia, unspecified (principal); I25.110 Atherosclerotic heart disease of native coronary artery with unstable angina pectoris; E78.5 Hyperlipidemia, unspecified; I10 Essential (primary) hypertension; I47.29 Other ventricular tachycardia; Z79.82 Long term (current) use of aspirin | CPT/HCPCS: 99214 ==

== ENCOUNTER 2023-04-09 14:10 | Outpatient (CLI) | payer MEDICARE, OTHER, SELFPAY ==
--- NOTE | 2023-04-09 14:15 | CT_ITS ---
WS: [id number] CT NECK TECHNIQUE: Contrast-enhanced CT of the neck with coronal and sagittal reformatted images. CLINICAL INFORMATION: SENSORINEURAL HEARING LOSS, BILAT, TINNITUS, BILAT COMPARISON: None. DLP: 151.[address] scans at [facility] use at least one of these dose optimization techniques: automated e xposure control; mA and/or kV adjustment per patient size (includes targeted exams where dose is matc hed to clinical indication); or iterative reconstruction. FINDINGS: Some images degraded by dental artifact. Cavernous carotid calcification. Partially visuali zed paranasal sinuses are well aerated. Mild mucosal thickening at the RIGHT mastoid tip. Normal post erior nasopharynx. Normal parapharyngeal fat. Palpable marker overlying the RIGHT parotid gland. Heterogeneously enhancing intraparotid nodule sarah uring 1.9 x 1.2 x 2.1 CM. Findings suspicious for parotid neoplasm. Recommend ENT consultation for re section. LEFT parotid gland is normal. Submandibular glands appear normal. No evidence of supraglottic or glottic mass. Normal subglottic airway. No cervical lymphadenopathy. M oderate spondylitic changes cervical spine. Enlarged thyroid. Calcified LEFT thyroid nodule. This can be followed up with ultrasound.Lung apices are well aerated. CT/CT neck w con* [id number] IMPRESSION: 1. Deep to palpable marker RIGHT neck is a heterogeneously enhancing solid RIG HT parotid nodule measuring 1.9 x 1.2 x 3.3 CM suspicious for parotid neoplasm. Recommend ENT consultation for consideration of resection. 2. LEFT parotid gland and submandibular glands are normal. 3. No evidence of supraglottic or glottic mass. 4. Enlarged thyroid gland. Calcified LEFT thyroid nodule. Recommend ultrasound for further evaluation. 5. No cervical lymphadenopathy.
[2023-04-09 14:46] LABS: Blood Urea Nitrogen 21 mg/dL (8-23); Glomerular Filtration Rate 54.9 mL/min (90-130)
[2023-04-09] MEDS: iohexol 350 mg/mL 500 mL Btl (per mL) IV (14:54)
== END 2023-04-09 14:11 | disposition home or self-care (01) ==
PROVIDERS: PCP Family Medicine; Visit Provider Specialist
DX: H90.3 Sensorineural hearing loss, bilateral (principal); H93.13 Tinnitus, bilateral; K11.9 Disease of salivary gland, unspecified; E04.9 Nontoxic goiter, unspecified
CPT/HCPCS: 70491; 82565; 84520; Q9967

== ENCOUNTER → 2023-12-25 11:30 | Outpatient (BNVA) | payer MEDICARE, OTHER, SELFPAY | PROVIDERS: PCP Family Medicine; Visit Provider Internal Medicine Cardiovascular Disease | DX: I10 Essential (primary) hypertension (principal); I25.110 Atherosclerotic heart disease of native coronary artery with unstable angina pectoris; E78.5 Hyperlipidemia, unspecified; R09.89 Other specified symptoms and signs involving the circulatory and respiratory systems; R00.1 Bradycardia, unspecified | CPT/HCPCS: 99213 ==

== ENCOUNTER → 2024-06-15 11:26 | Outpatient (BNVA) | payer MEDICARE, OTHER, SELFPAY | PROVIDERS: PCP Family Medicine; Visit Provider Internal Medicine Cardiovascular Disease | DX: I10 Essential (primary) hypertension (principal); E78.5 Hyperlipidemia, unspecified; R00.1 Bradycardia, unspecified; I25.110 Atherosclerotic heart disease of native coronary artery with unstable angina pectoris | CPT/HCPCS: 99213 ==

== ENCOUNTER → 2024-12-29 08:38 | Outpatient (BNVA) | payer MEDICARE, OTHER, SELFPAY | PROVIDERS: PCP Family Medicine; Visit Provider Nurse Practitioner Family | DX: I10 Essential (primary) hypertension (principal); I25.110 Atherosclerotic heart disease of native coronary artery with unstable angina pectoris; E78.5 Hyperlipidemia, unspecified; I49.9 Cardiac arrhythmia, unspecified; G30.9 Alzheimer's disease, unspecified; F02.80 Dementia in other diseases classified elsewhere, unspecified severity, without behavioral disturbance, psychotic disturbance, mood disturbance, and anxiety | CPT/HCPCS: 99214 ==

== ENCOUNTER → 2025-07-14 16:03 | Outpatient (BNVA) | payer OTHER, MEDICARE, SELFPAY | PROVIDERS: PCP Family Medicine; Visit Provider Internal Medicine Cardiovascular Disease | DX: R07.9 Chest pain, unspecified (principal) | CPT/HCPCS: 93005 ==

== ENCOUNTER 2025-08-13 08:43 | Outpatient (CLI) | payer MEDICARE, OTHER, SELFPAY ==
--- NOTE | 2025-08-13 09:15 | USCV_ITS ---
Yordan Naylor Age: 69 Gender: M : 1955 Exam Date: 08/13/2025 09:18 Ordering Phys: Wallace Drew MD ([email or web address]) Technologist: Dionisio Carty [place] [facility] [place]: BP: 134 / 70 HR: 55 Rhythm: Sinus Technical Quality: Adequate MEASUREMENTS (Male / Female) Normal Values 2D ECHO LV Diastolic Diameter PLAX 4.6 cm 4.2 - 5.9 / 3.9 - 5.3 cm IVS Diastolic Thickness 0.8 cm 0.6 - 1.0 / 0.6 - 0.9 cm IVS Systolic Thickness 1.7 cm LVPW Diastolic Thickness 1.1 cm 0.6 - 1.0 / 0.6 - 0.9 cm LVPW Systolic Thickness 1.6 cm LVOT Diameter 2.0 cm LV Ejection Fraction 2D Teich 55.5 % LV Ejection Fraction MOD 4C 51.5 % LV Ejection Fraction MOD 2C 54.2 % LV Ejection Fraction 2C AL 55.4 % LA Diameter 3.4 cm RA Systolic Volume 4C AL 45.2 ml RA Systolic Volume 4C MOD 42.0 ml LA Sys Volume AL 48.9 cm cubed LA Sys Volume Index AL 26.2 cm cubed/m squared Aorta at Sinotubular Diameter 2.3 cm M-MODE LA Ao Ratio MM 1.4 AV Cusp Separation MM 1.1 cm DOPPLER AV Peak Velocity 258.0 cm/s LVOT Peak Velocity 76.0 cm/s AV Area Cont Eq vti 1.4 cm squared AV Area Cont Eq pk 1.0 cm squared MV Peak Velocity 150.0 cm/s MV Area PHT 2.9 cm squared Mitral E to A Ratio 1.1 TV Peak Velocity 334.8 cm/s TR Peak Velocity 479.0 cm/s TR Peak Gradient 91.8 mmHg TR Mean Velocity 366.0 cm/s TR Mean Gradient 58.1 mmHg TR Velocity Time Integral 141.7 cm PV Peak Velocity 106.7 cm/s RV Ejection Time 0.3 s FINDINGS Left Ventricle Normal left ventricular size and systolic function, EF 55%. Mild left ventricular hypertrophy. No regional wall motion abnormalities. Grade III/IV diastolic dysfunction (restrictive filling pattern), severely elevated filling pressures. Right Ventricle Normal right ventricular size and systolic function. Right Atrium Normal right atrial size. Left Atrium Left atrium, upper limits of normal size IA Septum Normal appearance of the interatrial septum. Mitral Valve Moderate mitral annular calcification. Mild mitral valve regurgitation. Aortic Valve Moderate aortic valve stenosis, mean gradient 11.5 mmHg, ESE 1.4 cm squared. Trace aortic valve regurgitation. Tricuspid Valve Trace to mild tricuspid valve regurgitation. Possibly severe pulmonary hypertension with estimated pulmonary artery peak systolic pressure of 77 mmHg and a mean pressure of 45. This could be an overestimation because of poor Doppler signals Pulmonic Valve Pulmonic valve not well visualized. Pericardium No pericardial effusion. Aorta Normal aortic annulus size. IVC Inferior vena cava not visualized. CONCLUSIONS Normal left ventricular size and systolic function, EF 55%. Mild left ventricular hypertrophy. No regional wall motion abnormalities. Grade III/IV diastolic dysfunction (restrictive filling pattern), severely elevated filling pressures. Moderate aortic valve stenosis, mean gradient 11.5 mmHg, ESE 1.4 cm squared. Trace aortic valve regurgitation. Moderate mitral annular calcification. Mild mitral valve regurgitation. Left atrium, upper limits of normal size. Trace to mild tricuspid valve regurgitation. Possibly severe pulmonary hypertension with estimated pulmonary artery peak systolic pressure of 77 mmHg and a mean pressure of 45. This could be an overestimation because of poor Doppler signals Compared to the study from 05/16/2021, there is development of aortic valve stenosis Dr Wallace Drew MD FACC (Electronically Signed) Final Date: 15 August 2025 18:47 S
== END 2025-08-13 08:44 | disposition home or self-care (01) ==
PROVIDERS: PCP Family Medicine; Visit Provider Internal Medicine Cardiovascular Disease
DX: R06.09 Other forms of dyspnea (principal); I35.0 Nonrheumatic aortic (valve) stenosis; I08.1 Rheumatic disorders of both mitral and tricuspid valves
CPT/HCPCS: 93306